=== PATIENT | female | born 1960 | race Caucasian/White ===

== ENCOUNTER 2018-01-16 09:07 | Inpatient (IN) | payer SELFPAY ==
[2018-01-16] VITALS (11 sets, daily range): BP systolic 110–156; BP diastolic 81–107; PULSE 135–161; RESP 18–28; TEMP 93.7–97.5; O2SAT 0–99
[~2018-01-16] VITALS: Ht 165.1 cm; Wt 58.0 kg
[~2018-01-16 09:07] MED LIST: CALCIUM CHLORIDE 10% SOLN 1 GRAM/10 ML SYR IV ONE; DOPamine 800 MG/500 ML INJ 500 ML IV ONE; EPINEPHrine HCL (1:10,000) 1 MG/10 ML SYRINGE IV ONE; EPINEPHrine HCL (1:1000) 30 MG/30 ML VIAL IV ONE; SODIUM BICARBONATE 8.4% INJ 50 MEQ/50 ML SYR IV ONE
[2018-01-16] MEDS ORDERED: ACETAMINOPHEN 325 MG TAB PO PRN (10:15)
[2018-01-16] MEDS ORDERED: PROPOFOL 1000 MG/100 ML INJ 100 ML IV PRN ×2 (10:15→11:00)
[2018-01-16] MEDS ORDERED: SODIUM PHOSPHATE INJ 30 MMOL in SODIUM CHLOR 0.9% 250 ML INJ 240 ML IV PRN (10:15)
[2018-01-16] MEDS ORDERED: POTASSIUM CHLOR 40 MEQ PREMIX 100 ML IV PRN ×2 (10:15)
[2018-01-16] MEDS ORDERED: POTASSIUM CHLOR 20 MEQ PREMIX 100 ML IV PRN ×2 (10:15)
[2018-01-16] MEDS ORDERED: MAGNESIUM SULFATE INJ 2 GM in SODIUM CHLORIDE 0.9% INJ 96 ML IV PRN (10:15)
[2018-01-16] MEDS ORDERED: POTASSIUM PHOSPHATE MONOBASIC 500 MG TAB PO/TUBE PRN (10:15)
[2018-01-16] MEDS ORDERED: MORPHINE SULFATE 2 MG/ML SYRINGE IV PUSH PRN (10:15)
[2018-01-16] MEDS ORDERED: MAGNESIUM OXIDE 400 MG TAB PO PRN (10:15)
[2018-01-16] MEDS ORDERED: POTASSIUM PHOSPHATE INJ 30 MMOL in SODIUM CHLOR 0.9% 250 ML INJ 250 ML IV PRN (10:15)
[2018-01-16] MEDS ORDERED: MAGNESIUM SULFATE INJ 4 GM in SODIUM CHLORIDE 0.9% INJ 92 ML IV PRN (10:15)
[2018-01-16] MEDS ORDERED: POTASSIUM PHOSPHATE MONOBASIC 500 MG TAB PO PRN (10:15)
[2018-01-16] MEDS ORDERED: SODIUM CHLORIDE 0.9% FLUSH 10 ML FLUSH IV FLUSH PRN (10:15)
[2018-01-16] MEDS ORDERED: RESP: ALBUTEROL 2.5 MG/IPRATROPIUM 0.5 MG NEB (PRN) INH (10:15)
[2018-01-16] MEDS ORDERED: NURSING INFORMATION XX SCH (10:15)
[2018-01-16] MEDS ORDERED: POTASSIUM CHLORIDE 25 MEQ EFFERVESCENT TAB PO PRN (10:15)
[2018-01-16] MEDS ORDERED: CHLORHEXIDINE GLUCONATE 2 % 1 PACK (2 CLOTHS) TOP PRN (10:15)
[2018-01-16] MEDS ORDERED: IOHEXOL 350 MG/ML 10 ML VIAL (for RAD DIAG) IVCONTRAST ONE (10:33)
--- NOTE | 2018-01-16 10:48 | RADRPT ---
EXAM DATE/TIME: 01/16/2018 10:29 [facility] COMPARISON: No previous studies available for comparison. INDICATIONS : Bleed. RADIATION DOSE: 29.23 CTDIvol (mGy) MEDICAL HISTORY : Non-responsive. SURGICAL HISTORY : Non-responsive. ENCOUNTER: Initial ACUITY: 1 day PAIN SCALE: Non-responsive LOCATION: cranial TECHNIQUE: Multiple contiguous axial images were obtained of the head. Using automated exposure control and adj ustment of the mA and/or kV according to patient size, radiation dose was kept as low as reasonably a chievable to obtain optimal diagnostic quality images. DICOM format image data is available electro nically for review and comparison. FINDINGS: The examination demonstrates high attenuation within the interhemispheric fissure consistent with sub dural hemorrhage. There is also intraventricular hemorrhage within the lateral ventricles, third vent ricle and fourth ventricle. There is also high attenuation within the basilar cisterns and along the tentorium. Small bilateral frontal subdural hematomas are also seen as well as a small amount of hemo rrhage along the temporal lobes bilaterally. There is no evidence for mass or fracture. No signs of a cute infarct. CONCLUSION: Subarachnoid, intraventricular and subdural hemorrhage is seen as above. There is no midline shift or mass effect. No masses are seen. Brady Lara MD on January 16, 2018 at 10:44 Board Certified Radiologist. This report was verified electronically.
--- NOTE | 2018-01-16 10:49 | RADRPT ---
EXAM DATE/TIME: 01/16/2018 10:11 [facility] COMPARISON: No previous studies available for comparison. INDICATIONS : Confirm Endotracheal tube. MEDICAL HISTORY : Unresponsive. SURGICAL HISTORY : Unresponsive. ENCOUNTER: Initial ACUITY: 1 day PAIN SCORE: Non-responsive. LOCATION: Bilateral chest FINDINGS: Endotracheal tube tip at the inferior margin of the clavicles. Enteric tube courses beneath the diaph ragm. Cardiomegaly and bilateral patchy areas of airspace disease are noted. No effusions. CONCLUSION: Bilateral airspace disease. Endotracheal tube and NG tube as above. Brady Lara MD on January 16, 2018 at 10:46 Board Certified Radiologist. This report was verified electronically.
--- NOTE | 2018-01-16 10:53 | RADRPT ---
EXAM DATE/TIME: 01/16/2018 10:29 [facility] COMPARISON: CT BRAIN W/O CONTRAST, January 16, 2018, 10:29. INDICATIONS : Bleed. IV CONTRAST: 75 cc Omnipaque 350 (iohexol) IV ; Cumulative dose for multiple exams. RADIATION DOSE: 26.91 CTDIvol (mGy) ; Combined studies MEDICAL HISTORY : Non-responsive. SURGICAL HISTORY : Non-responsive. ENCOUNTER: Initial ACUITY: 1 day PAIN SCALE: Non-responsive LOCATION: cranial TECHNIQUE: Volumetric scanning was performed using a multi-row detector CT scanner. The data was post processed with a variety of visualization algorithms including full volume maximum intensity projection, multi -planar sliding thin slab reformation, curved planar reformation, and surface rendering techniques. Using automated exposure control and adjustment of the mA and/or kV according to patient size, radiat ion dose was kept as low as reasonably achievable to obtain optimal diagnostic quality images. DICO M format image data is available electronically for review and comparison. FINDINGS: There is excellent visualization of the major intracranial arteries out to the second-order branch ve ssels. There is no evidence for vessel truncation or stenosis, and no evidence for vascular malforma tion. There is a large aneurysm at the midline directed posteriorly and to the left, at the level of the anterior communicating artery. It measures approximately 9.1 mm in maximal dimension. There are bilateral pleural effusions, lower lobe and upper lobe consolidation as well as emphysemato us changes. Endotracheal tube and enteric tubes are noted. 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 Brady Lara MD on January 16, 2018 at 10:47 Board Certified Radiologist. This report was verified electronically.
--- NOTE | 2018-01-16 10:58 | RADRPT ---
EXAM DATE/TIME: 01/16/2018 10:29 [facility] COMPARISON: CTA BRAIN W 3D RECON, January 16, 2018, 10:29. CT BRAIN W/O CONTRAST, January 16, 2018, 10:29. INDICATIONS : Bleed. IV CONTRAST: 75 cc Omnipaque 350 (iohexol) IV ; Cumulative dose for multiple exams. RADIATION DOSE: 26.91 CTDIvol (mGy) ; Combined studies - Brain/Sinuses MEDICAL HISTORY : Non-responsive. SURGICAL HISTORY : Non-responsive. ENCOUNTER: Initial ACUITY: 1 day PAIN SCALE: Non-responsive LOCATION: neck Elevated flow velocities and ICA/CCA ratios have been found to correlate with increased degrees of vessel stenosis, calculated as percentage of diameter relative to a normal segment of distal ICA/CCA. TECHNIQUE: Volumetric scanning was performed using a multirow detector CT scanner. The data was post processed with a variety of visualization algorithms including full-volume maximum intensity projection, multip lanar sliding thin-slab reformation, curved-planar reformation, and surface-rendering techniques. Us ing automated exposure control and adjustment of the mA and/or kV according to patient size, radiatio n dose was kept as low as reasonably achievable to obtain optimal diagnostic quality images. DICOM f ormat image data is available electronically for review and comparison. FINDINGS: There is consolidation within the upper and lower lobes, bilateral effusions and emphysema. Anterior to indicating artery aneurysm is noted and best assessed on CTA brain from the same day. AORTIC ARCH: There is a three-vessel origin of the great vessels from the aorta. No evidence of ostial narrowing. RIGHT CAROTID: The common carotid artery is intact. The carotid bulb has a normal configuration without ulceration o r narrowing. The internal carotid artery lumen is smooth without stenosis. The external carotid stephanie ry is intact. LEFT CAROTID: The common carotid artery is intact. The carotid bulb has a normal configuration without ulceration or narrowing. The internal carotid artery lumen is smooth without stenosis. The external carotid ar demarco is intact. VERTEBRALS: The vertebral arteries have a symmetric diameter. No stenotic lesions are seen. CONCLUSION: 1. Right and left carotid arteries are widely patent as well as the vertebral arteries. 2. Airspace consolidation and effusions bilaterally. 3. Anterior communicating artery aneurysm. Brady Lara MD on January 16, 2018 at 10:53 Board Certified Radiologist. This report was verified electronically.
[2018-01-16] MEDS: SODIUM CHLOR 0.9% 1000 ML INJ 1,000 ML IV SCH ×3 (10:59→23:25)
--- NOTE | 2018-01-16 11:37 | HHI.HP ---
[facility] Service Critical Care Medicine Primary Care Physician Unknown Admission Diagnosis Diagnosis: (1) Aneurysmal subarachnoid hemorrhage Diagnosis: Principal (2) Interhemispheric and bifrontal SDH Diagnosis: Principal (3) IVH (intraventricular hemorrhage) Diagnosis: Principal (4) Acute hypoxemic respiratory failure Diagnosis: Principal (5) Acute encephalopathy Diagnosis: Principal Chief Complaint: Fall with subdural and subarachnoid hemorrhage Travel History International Travel<30 Days: No Contact w/Intl Traveler <30 Da: No Traveled to Known Affected Are: No History of Present Illness Patient is a 57-year-old female with past medical history significant for alcohol abuse who was found unresponsive in her bathroom by her brother. Patient lives with her brother and family, and apparently they heard a fall and checked on her and she was lying on the ground, confused lethargic. Patient initially opened her eyes but then again level of consciousness started to deteriorate. Emergently taken to [facility] by EMS. Intubated for airway protection. CT of the head at [facility] showed subdural hemorrhage along tentorium and falx and subarachnoid hemorrhage. Patient has reported a history of headache yesterday night. Patient was emergently transferred to [facility] for further workup. Patient was immediately evaluated after arrival to the [place] ICU. She withdraws to pain otherwise no spontaneous eye opening or movements. Remain hypoxemic with bilateral infiltrates on chest x-ray. Patient was emergently sent for a CT of the head and CT angiogram of brain and neck. CT brain here confirmed interhemispheric and bifrontal subdural hemorrhage, intraventricular hemorrhage involving third fourth and lateral ventricles, and subarachnoid hemorrhage. 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 Discussed with neurosurgery Dr. Mckinley, and I contacted interventional radiologist Dr. Erwin Lisa. He is unable to coil this aneurysm and he recommends transfer to [facility]. At this time we will target a systolic blood pressure less than 120 as aneurysm is not secure. Stat order for starting Nimotop given. Arrangements are being made to transfer her to [facility]. Keep Na 145-150. EVD planned if clinical deterioration or delay in transfer. Review of Systems ROS Limitations: Altered Mental Status, Unresponsive Past Family Social History Allergies: Coded Allergies: No Allergy Information Available (Unverified , 01/16/18) Intubated Past Medical History Alcohol abuse Tobacco abuse Past Surgical History Brother states patient had rectal surgery long time ago-do not know any specifics Reported Medications Does not take any medications Active Ordered Medications Reviewed currently on propofol and normal saline Family History Maternal uncle might have of aneurysmal bleed Social History Smokes about a pack of cigarettes a day Drinks more than a pint of vodka daily Physical Exam Vital Signs Vital Signs Date Time Temp Pulse Resp B/P (MAP) Pulse Ox O2 Delivery O2 Flow Rate FiO2 01/16/18 10:04 92 100 Physical Exam GENERAL: Unresponsive, intubated on ventilator. Sedated with propofol SKIN: Warm/dry. HEAD: Atraumatic. Normocephalic. EYES: Pupils equal and round, right eye has cataract, left eye sluggish ENT: No nasal bleeding or discharge. Orotracheally intubated NECK: Trachea midline. No JVD. CARDIOVASCULAR: Regular rate and rhythm. No murmur appreciated. RESPIRATORY: Bilateral coarse rhonchi and few crackles. Breath sounds equal bilaterally. On ACV with PEEP of 12 GASTROINTESTINAL: Abdomen soft, non-tender, nondistended. MUSCULOSKELETAL: No obvious deformities. No clubbing. No cyanosis. No edema. NEUROLOGICAL: Pupils as above. Remains unresponsive. Withdraws to pain 4. No spontaneous eye opening Laboratory Laboratory Tests Test 01/16/18 10:25 01/16/18 11:00 Date/Time Source Procedure Growth Status 01/16/18 10:47 Sputum Endotracheal Gram Stain Pending Received 01/16/18 10:47 Sputum Endotracheal Sputum Culture Pending Received Imaging See HPI Septic Shock Reassessment Septic shock perfusion: reassessment completed Caprini VTE Risk Assessment Caprini VTE Risk Assessment: Mod/High Risk (score >= 2) VTE Pharm Contraindication: Hemorrhage Caprini Risk Assessment Model Point Value = 1 Point Value = 2 Point Value = 3 Point Value = 5 Age 41-60 Minor surgery BMI > 25 kg/m2 Swollen legs Varicose veins or History of unexplained or recurrent spontaneous Oral contraceptives or hormone replacement Sepsis (< 1 month) Serious lung disease, including pneumonia (< 1 month) Abnormal pulmonary function Acute myocardial infarction Congestive heart failure (< 1 month) History of inflammatory bowel disease Medical patient at bed rest Age 61-74 Arthroscopic surgery Major open surgery (> 45 min) Laparoscopic surgery (> 45 min) Malignancy Confined to bed (> 72 hours) Immobilizing plaster cast Central venous access Age >= 75 History of VTE Family history of VTE Factor V Leiden Prothrombin [id number] Lupus anticoagulant Anticardiolipin antibodies Elevated serum homocysteine Heparin-induced thrombocytopenia Other congenital or acquired thrombophilia Stroke (< 1 month) Elective arthroplasty Hip, pelvis, or leg fracture Acute spinal cord injury (< 1 month) Prophylaxis Regimen Total Risk Factor Score Risk Level Prophylaxis Regimen 0-1 Low Early ambulation 2 Moderate Order ONE of the following: *Sequential Compression Device (SCD) *Heparin 5000 units SQ BID 3-4 Higher Order ONE of the following medications: *Heparin 5000 units SQ TID *Enoxaparin/Lovenox 40 mg SQ daily (WT < 150 kg, CrCl > 30 mL/min) *Enoxaparin/Lovenox 30 mg SQ daily (WT < 150 kg, CrCl > 10-29 mL/min) *Enoxaparin/Lovenox 30 mg SQ BID (WT < 150 kg, CrCl > 30 mL/min) AND/OR *Sequential Compression Device (SCD) 5 or more Highest Order ONE of the following medications: *Heparin 5000 units SQ TID (Preferred with Epidurals) *Enoxaparin/Lovenox 40 mg SQ daily (WT < 150 kg, CrCl > 30 mL/min) *Enoxaparin/Lovenox 30 mg SQ daily (WT < 150 kg, CrCl > 10-29 mL/min) *Enoxaparin/Lovenox 30 mg SQ BID (WT < 150 kg, CrCl > 30 mL/min) AND *Sequential Compression Device (SCD) Assessment and Plan Assessment and Plan Assessment and Plan NEURO: Acute aneurysmal subarachnoid hemorrhage, 9.1 mm a calm aneurysm Interhemispheric and bifrontal subdural hemorrhage most likely secondary to trauma from fall Intraventricular hemorrhage involving third fourth and lateral ventricles Alcohol abuse Acute encephalopathy -CT brain showed interhemispheric and bifrontal subdural hemorrhage, intraventricular hemorrhage involving third fourth and lateral ventricles, and subarachnoid hemorrhage, neurosurgery Dr. 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 Discussed with Dr. Lisa who recommended transfer to [facility] -Start 3% saline to target sodium 150-155. Dr. Mckinley will consider EVD especially if there is delay in transfer -Supplement thiamine, watch for seizure. No seizure prophylaxis recommended at this time -Propofol, fentanyl for sedation and vent synchrony -Avoid hyponatremia hypomagnesemia, avoid hypothermia -Tylenol as needed for fever RESP: Acute hypoxemic respiratory failure Aspiration pneumonitis versus pulmonary edema -ACV, DuoNeb every 6 hours scheduled and as needed -Sputum culture, start empiric Zosyn for aspiration pneumonia -No ventilator weaning until stable neurologically -Ventilator bundle, keep head of the bed elevated at least 30 CV: -Normal saline IV fluids at 150 ml per hour -Start 3% saline at 30 mL/h to keep Na 145-150, if needed -Cardene infusion if needed to keep systolic blood pressure less than 120 GI: -N.p.o., IV Famotidine : -Monitor renal function closely. Hernandez catheter. ID: Aspiration pneumonitis Probable sepsis -F/u sputum urine culture -Start Zosyn 3.375 GM q6hr HEME: -Monitor CBC, CMP ENDO: -Replace electrolytes per protocol PROPH: -Bilateral lower extremity SCDs/BRIAN. Chemical DVT prophylaxis is contraindicated at this time. IV Protonix LINES: -Place subclavian central line CC time 65 min excluding procedure Code Status Full Discussed Condition With Nikko Roman MD Jan 16, 2018 11:37
[2018-01-16] MEDS ORDERED: TERBUTALINE INJ 1 MG/ML AMP SQ PRN (11:45)
[2018-01-16] MEDS: niMODipine 30 MG CAP PO SCH ×3 (12:00→20:00)
[2018-01-16] MEDS: RESP: ALBUTEROL 2.5 MG/IPRATROPIUM 0.5 MG NEB (SCH) NEB ×3 (12:05→22:00)
--- NOTE | 2018-01-16 12:26 | MB ---
cc: Enrique MOLINA DATE: 01/16/2018 CHIEF COMPLAINT: Transfer from [facility]. HISTORY OF PRESENT ILLNESS: This is a 57-year-old female patient who apparently reported she had a headache last night. This morning, the family heard her fall and found her to be unresponsive. She was brought to [facility] where she underwent evaluation. CT scan of the brain was performed, which was abnormal, and she was transported to [place] for further care. PAST MEDICAL HISTORY: Not obtainable. Unknown. ALLERGIES: UNKNOWN. MEDICATIONS: Unknown. REVIEW OF SYSTEMS: Not obtainable. PHYSICAL EXAMINATION: VITAL SIGNS: Shows a blood pressure of 130/80, pulse of 130. The patient is intubated and sedated. Pulse oximetry of 92. HEENT: Unremarkable. NECK: Supple with good carotid pulses bilaterally. CHEST: Symmetric. Lungs are clear. HEART: Shows a regular rhythm with normal heart sounds. ABDOMEN: Soft, nontender. EXTREMITIES: Appear to be clear. NEUROLOGIC: The patient is sedated and nonresponsive. She does not follow commands. Cranial nerves 2-12 appear to be intact. Motor exam shows that she tends to withdraw the upper and lower extremities. Deep tendon reflexes are trace. LABORATORY AND DIAGNOSTIC DATA:: Review of a CT scan of the brain shows what appears to be a tentorial hemorrhage and possibly blood in the cistern and some blood in the ventricular system. Repeat CT at [place] shows evidence of ventricular blood and blood in the third and fourth ventricle with mild ventriculomegaly, blood along the tentorium, small subdural in the frontal and temporal areas. CTA of the brain shows what appears to be anterior communicating aneurysm of about 9 mm. OVERALL IMPRESSION: 1. Intraventricular and tentorial hemorrhage as well as falcine hemorrhage. Subdural hemorrhage,small 2. Anterior communicating artery aneurysm. PLAN: Transfer the patient to a higher center after discussion with the business control manager for possible intervention or clipping of the aneurysm. Depending on the rapidity of transfer, EVD may be noted prior to transfer. Enrique TINOCO/GARRY , 11:55 AM , 12:25 PM [facility]ERTam[facility]
[2018-01-16] MEDS ORDERED: 3% SALINE INJ 500 ML IV SCH (12:30)
[2018-01-16] MEDS ORDERED: PHENYLEPHRINE INJ 40 MG in DEXTROSE 5% IN WATE 500 ML INJ 496 ML IV PRN ×2 (13:00)
--- NOTE | 2018-01-16 13:15 | HHI.DS ---
Discharge Summary Admission Date Jan 16, 2018 at 09:54 Admitting Diagnosis (1) Aneurysmal subarachnoid hemorrhage ICD Code: I60.8 - Other nontraumatic subarachnoid hemorrhage Diagnosis: Principal (2) Interhemispheric and bifrontal SDH Diagnosis: Principal (3) IVH (intraventricular hemorrhage) ICD Code: I61.5 - Nontraumatic intracerebral hemorrhage, intraventricular Diagnosis: Principal (4) Acute hypoxemic respiratory failure ICD Code: J96.01 - Acute respiratory failure with hypoxia Diagnosis: Principal (5) Acute encephalopathy ICD Code: G93.40 - Encephalopathy, unspecified Diagnosis: Principal Procedures Intubated at [facility] Brief History Patient is a 57-year-old female with past medical history significant for alcohol abuse who was found unresponsive in her bathroom by her brother. Patient lives with her brother and family, and apparently they heard a fall and checked on her and she was lying on the ground, confused lethargic. Patient initially opened her eyes but then again level of consciousness started to deteriorate. Emergently taken to [facility] by EMS. Intubated for airway protection. CT of the head at [facility] showed subdural hemorrhage along tentorium and falx and subarachnoid hemorrhage. Patient has reported a history of headache yesterday night. Patient was emergently transferred to [facility] for further workup. Patient was immediately evaluated after arrival to the [place] ICU. She withdraws to pain otherwise no spontaneous eye opening or movements. Remain hypoxemic with bilateral infiltrates on chest x-ray. Patient was emergently sent for a CT of the head and CT angiogram of brain and neck. CT brain here confirmed interhemispheric and bifrontal subdural hemorrhage, intraventricular hemorrhage involving third fourth and lateral ventricles, and subarachnoid hemorrhage. 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 Discussed with neurosurgery Dr. Mckinley, and I contacted interventional radiologist Dr. Erwin Lisa. He is unable to coil this aneurysm and he recommends transfer to [facility]. At this time we will target a systolic blood pressure less than 120 as aneurysm is not secure. Stat order for starting Nimotop given. Arrangements are being made to transfer her to [facility]. Keep Na 145-150. EVD planned if clinical deterioration or delay in transfer. Significant Findings Laboratory Tests Test 01/16/18 10:00 01/16/18 10:25 01/16/18 11:00 01/16/18 12:15 Blood Gas HCO3 16 mmol/L (22-26) 15 mmol/L (22-26) Blood Gas Base Excess -9.4 mmol/L (-2-2) -9.5 mmol/L (-2-2) Blood Gas Oxygen Saturation 85 % (90-100) Arterial Blood pH 7.26 (7.380-7.420) 7.36 (7.380-7.420) Arterial Blood Oxygen Content 23.8 Vol % (12.0-20.0) 29.7 Vol % (12.0-20.0) Blood Gas Hemoglobin 20.0 G/DL (12.0-16.0) 21.6 G/DL (12.0-16.0) Arterial Blood Partial Pressure CO2 28 mmHg (38-42) Arterial Blood Partial Pressure O2 179 mmHg (61-120) Imaging CT brain here confirmed interhemispheric and bifrontal subdural hemorrhage, intraventricular hemorrhage involving third fourth and lateral ventricles, and subarachnoid hemorrhage. 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 PE at Discharge GENERAL: Unresponsive, intubated on ventilator. Sedated with propofol SKIN: Warm/dry. HEAD: Atraumatic. Normocephalic. EYES: Pupils equal and round, right eye has cataract, left eye sluggish ENT: No nasal bleeding or discharge. Orotracheally intubated NECK: Trachea midline. No JVD. CARDIOVASCULAR: Regular rate and rhythm. No murmur appreciated. RESPIRATORY: Bilateral coarse rhonchi and few crackles. Breath sounds equal bilaterally. On ACV with PEEP of 12 GASTROINTESTINAL: Abdomen soft, non-tender, nondistended. MUSCULOSKELETAL: No obvious deformities. No clubbing. No cyanosis. No edema. NEUROLOGICAL: Pupils as above. Remains unresponsive. Withdraws to pain 4. No spontaneous eye opening Transfer Summary 57-year-old female with past medical history significant for alcohol abuse who was found unresponsive at home and was transferred to [facility] by EMS. Intubated for airway protection. CT of the head at [facility] showed subdural hemorrhage along tentorium and falx and subarachnoid hemorrhage. Patient has reported a history of headache yesterday night. Patient was emergently transferred to [facility] for further workup. After arrival here, emergently sent for a CT of the head and CT angiogram of brain and neck. CT brain here confirmed interhemispheric and bifrontal subdural hemorrhage, intraventricular hemorrhage involving third fourth and lateral ventricles, and subarachnoid hemorrhage. 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 Discussed with neurosurgery Dr. Mckinley, and interventional radiologist Dr. Erwin Lisa. Unable to coil this aneurysm here recommended transfer to [facility]. Will target a systolic blood pressure less than 120 as aneurysm is not secure. Nimotop 60 mg po q4h. Transfer to [facility] emergently to Dr. Madden, Neurosurgery Pt Condition on Discharge: Guarded Discharge Disposition: Disch to Another Hospital Discharge Instructions DIET: Follow Instructions for: Nothing By Mouth Activities you can perform: Continue Bedrest Nikko Lafleur MD Jan 16, 2018 13:15
[2018-01-16] MEDS: THIAMINE INJ 100 MG in SODIUM CHLORIDE 0.9% INJ 100 ML IV SCH (13:25)
[2018-01-16 13:56] LABS: BACTERIA, URINE FEW /hpf; BILIRUBIN, URINE NEG (NEG); BLOOD, URINE MOD (NEG); GLUCOSE,URINE NEG (NEG); KETONE, URINE NEG (NEG); MUCUS URINE FEW /lpf (OCC); NITRITE,URINE POS (NEG); SQUAMOUS EPITHELIAL CELL URINE <1 /hpf (0-5); URINE COLOR YELLOW (YELLW/STRAW)
[2018-01-16 13:57] LABS: URINE LEUKOCYTE ESTERASE SMALL (NEG)
[2018-01-16] MEDS: PIPERACIL-TAZO 3.375 GM PREMIX 50 ML IV SCH ×2 (14:00→20:00)
[2018-01-16 14:09] LABS: AUTOMATED NEUTROPHIL # 15.4 TH/MM3 (1.8-7.7); BASOPHIL # 0.2 TH/MM3 (0-0.2); BASOPHIL % 1.1 % (0.0-2.0); EOSINOPHIL % 0.2 % (0.0-4.0); HEMATOCRIT 61.4 % (35.0-46.0); HEMOGLOBIN 21.5 GM/DL (11.6-15.3); LYMPHOCYTE # 2.3 TH/MM3 (1.0-4.8); MEAN CELL VOLUME 104.1 FL (80.0-100.0); MEAN CORPUSCULAR HEMOGLOBIN 36.4 PG (27.0-34.0); MEAN CORPUSCULAR HGB CONC 34.9 % (32.0-36.0); MONO % 6.8 % (0.0-8.0); MONOCYTE # 1.3 TH/MM3 (0-0.9); NEUT % 79.9 % (16.0-70.0); PLATELET COUNT 278 TH/MM3 (150-450); RED CELL DISTRIBUTION WIDTH 16.8 % (11.6-17.2); WHITE BLOOD COUNT 19.2 TH/MM3 (4.0-11.0)
--- NOTE | 2018-01-16 14:18 | RADRPT ---
EXAM DATE/TIME: 01/16/2018 13:57 [facility] COMPARISON: CHEST SINGLE AP, January 16, 2018, 10:11. INDICATIONS : Central line placement. MEDICAL HISTORY : Unresponsive. SURGICAL HISTORY : Unresponsive. ENCOUNTER: Subsequent ACUITY: 2 days PAIN SCORE: Non-responsive. LOCATION: Bilateral chest FINDINGS: There is a left pneumothorax measuring up to 3.3 cm. Midline shift is not seen. There is a left inter nal jugular central line in place with the tip overlying the SVC. The ET tube and NG tube are well pl aced. Heart size is normal. There is diffuse increased mixed interstitial and alveolar density likely related to edema. CONCLUSION: New at least moderate left pneumothorax. Dr. Lafleur was notified of this by telephone. Miquel Jules MD on January 16, 2018 at 14:13 Board Certified Radiologist. This report was verified electronically.
--- NOTE | 2018-01-16 14:52 | PD.PROCEDR ---
Central Line Procedure REASON FOR PROCEDURE Central venous access PROCEDURE PERFORMED Central line placement: Left IJ central line US guided CONSENT Informed consent for procedure was obtained from brother. The risks and benefits of the procedure were discussed to include but limited to bleeding, clot formation, infection, and even . ANESTHESIA Local injection of 1% Lidocaine DESCRIPTION OF THE PROCEDURE The patient was placed in supine, mild Trendelenburg position. The area was exposed and cleansed with ChloraPrep, times two. Large sterile drape was used to cover the patient, with the site exposed, under sterile conditions including cap, face mask, sterile gown, and sterile gloves. On single attempt, the introducer needle was inserted with negative pressure in syringe and venous flash was obtained. The guide wire was then advanced without any restriction and the needle was removed. The dilator was used without any complications. Using Seldinger technique the 20 cm 7F triple lumen catheter was advanced over the guide wire to a depth of 18 centimeters. The guide wire was removed. All ports were aspirated with dark venous blood return and flushed easily with sterile saline. All ports were capped. Antibiotic disc was placed around central line at puncture site. The central line was secured to the skin with two interrupted 2.0 silk sutures. The area was bandaged with sterile see- through central line bandage. RADIOLOGICAL DATA Ultrasound guidance was used to locate LIJ. Doppler/color flow was used to confirm venous flow. COMPLICATIONS: No apparent complications ESTIMATED BLOOD LOSS: Less than 1 cc. Addendum: Attempted left subclavian central line, air was withdrawn. So LIJ central line placed. CXR showed L apical pneumothorax and a left pigtail chest tube was placed Nikko Lafleur MD Jan 16, 2018 14:52
--- NOTE | 2018-01-16 14:56 | PD.PROCEDR ---
Procedure Note Procedure Procedure: Left pigtail chest tube placement Indication: Moderate left effusion pneumothorax Details of procedure: The patient was laid in supine position. The left anterior chest wall was cleaned with ChloraPrep twice. Regional sterile drapes were applied and I used full sterile precautions including Cap mask sterile gown and gloves. 1% lidocaine with epinephrine was used for local anesthesia and injected into the subcutaneous and deep muscle tissues, at the third intercostal space in the midclavicular line. A 0.25 cm skin incision was made with a scalpel. 18G access needle was introduced into the pleural space and air was aspirated. A guidewire was placed and the needle was removed. After serial dilation, a 10F Icelandic pigtail catheter was introduced using Seldinger technique over the guidewire and internal stiffener of the pigtail catheter was removed along with guidewire. The pigtail catheter was connected to the pleurovac at -40 suction. There was 2+ initial air leak. The pigtail catheter was secured with 1 silk suture and Stay fix dressing Estimated blood loss: <1 cc CXR pending Complications: None. Nikko Lafleur MD Jan 16, 2018 14:56
--- NOTE | 2018-01-16 15:34 | RADRPT ---
EXAM DATE/TIME: 01/16/2018 14:44 [facility] COMPARISON: CHEST SINGLE AP, January 16, 2018, 13:57. INDICATIONS : Evaluate chest tube placement MEDICAL HISTORY : SURGICAL HISTORY : None. ENCOUNTER: Subsequent ACUITY: 1 day PAIN SCORE: Non-responsive. LOCATION: chest FINDINGS: There is now a left-sided chest tube in place. There is improvement in the left pneumothorax. There i s a residual small pneumothorax measuring up to 8 mm over the apex. This is significantly improved fr om the previously seen moderate to large pneumothorax. ET tube and NG tube and left internal jugular central line are well placed. Heart size is normal. The lung shows diffuse mixed interstitial and rossy eolar density likely related to edema. CONCLUSION: 1. Successful placement of a left-sided chest tube with a small residual pneumothorax measuring up to 8 mm. 2. Suspected diffuse edema. Miquel Jules MD on January 16, 2018 at 15:29 Board Certified Radiologist. This report was verified electronically.
[2018-01-16 15:41] LABS: PHOSPHORUS 1.9 MG/DL (2.5-4.9); TOTAL BILIRUBIN ADULT 0.4 MG/DL (0.2-1.0); TOTAL PROTEIN 3.7 GM/DL (6.4-8.2)
[2018-01-16 15:45] LABS: ALBUMIN 1.7 GM/DL (3.4-5.0); BICARBONATE 15.2 MEQ/L (21.0-32.0); CREATININE 0.36 MG/DL (0.50-1.00); MAGNESIUM 1.1 MG/DL (1.5-2.5)
[2018-01-16 15:47] LABS: CALCIUM 5.7 MG/DL (8.5-10.1)
[2018-01-16] MEDS ORDERED: SODIUM BICARBONATE 8.4% INJ 50 MEQ/50 ML SYR ONE ×3 (15:56→17:21)
[2018-01-16 15:58] LABS: CALCIUM-PROTEIN CORRECTED 7.3 MG/DL (8.5-10.1)
[2018-01-16] MEDS ORDERED: CALCIUM CHLORIDE 10% SOLN 1 GRAM/10 ML SYR ONE ×2 (16:01→17:46)
[2018-01-16] MEDS ORDERED: ROCURONIUM INJ 50 MG/5 ML VIAL ONE ×2 (16:02→16:03)
[2018-01-16] MEDS ORDERED: MIDAZOLAM HCL 5 MG/ML VIAL (1 ML) ONE (16:10)
--- NOTE | 2018-01-16 16:14 | PD.PROCEDR ---
Procedure Note Procedure Procedure- right femoral arterial line placement indication- invasive hemodynamic monitoring Description of procedure: The patient was placed in supine, position. The area was exposed and cleansed with ChloraPrep, times two. Large sterile drape was used to cover the patient, with the site exposed, under sterile conditions including cap, face mask, sterile gown, and sterile gloves. On single attempt, the introducer needle was inserted with negative pressure in syringe and arterial flash was obtained. The guide wire was then advanced without any restriction and the needle was removed. Using Seldinger technique the 16 cm arterial catheter was advanced over the guide wire. The guide wire was removed. Good arterial waveform obtained. Antibiotic disc was placed around arterial line at puncture site. The arterial line was secured to the skin with one interrupted silk sutures. The area was bandaged with sterile see-through central line bandage. Nikko Lafleur MD Jan 16, 2018 16:14
--- NOTE | 2018-01-16 17:23 | RADRPT ---
EXAM DATE/TIME: 01/16/2018 16:34 [facility] COMPARISON: CHEST SINGLE AP, January 16, 2018, 14:44. INDICATIONS : Left chest tube removal. MEDICAL HISTORY : None. SURGICAL HISTORY : None. ENCOUNTER: Subsequent ACUITY: 1 day PAIN SCORE: Non-responsive. LOCATION: Bilateral chest FINDINGS: The previously seen left chest tube is no longer present. There continues to be a left pneumothorax. It appears larger on the current exam now measuring 1.4 cm. There is diffuse edema. ETT, NG tube and left internal jugular central line are well placed. The heart size is normal. CONCLUSION: A left chest tube has been removed and there is now a worsening mild left pneumothorax. Information was relayed to Dr. Lafleur by telephone. Miquel Jules MD on January 16, 2018 at 17:19 Board Certified Radiologist. This report was verified electronically.
[2018-01-16] MEDS ORDERED: EPINEPHrine HCL (1:10,000) 1 MG/10 ML SYRINGE ONE (17:24)
--- NOTE | 2018-01-16 17:25 | RADRPT ---
EXAM DATE/TIME: 01/16/2018 16:48 [facility] COMPARISON: CHEST SINGLE AP, January 16, 2018, 16:34. INDICATIONS : Left sided chest tube placement. MEDICAL HISTORY : None. SURGICAL HISTORY : None. ENCOUNTER: Subsequent ACUITY: 1 day PAIN SCORE: Non-responsive. LOCATION: Bilateral chest FINDINGS: There is a chest tube seen over the left side. The tip of this appears to be projecting over the left supraclavicular region and is not within the pleural space. There continues to be a pneumothorax on the left. Pneumothorax measures 1.5 cm in thickness over the left upper lung. The heart size is norm al. The lungs are to diffuse edema. ET tube, NG tube and left internal jugular line are well placed. CONCLUSION: The left chest tube does not appear to be within the left pleural space and there continues to be a p neumothorax on the left. This information was relayed to Dr. Lafleur by telephone. Miquel Jules MD on January 16, 2018 at 17:20 Board Certified Radiologist. This report was verified electronically.
--- NOTE | 2018-01-16 17:30 | RADRPT ---
EXAM DATE/TIME: 01/16/2018 17:12 [facility] COMPARISON: CHEST SINGLE AP, January 16, 2018, 16:48. INDICATIONS : Evaluate chest tube placement MEDICAL HISTORY : None. SURGICAL HISTORY : None. ENCOUNTER: Subsequent ACUITY: 1 day PAIN SCORE: Non-responsive. LOCATION: chest FINDINGS: Stable ETT, NGT and left IJ central line. Interval repositioning/replacement of left apical chest tub e in place with near interval resolution of left-sided pneumothorax. No new focal pleural or parenchy mal opacities. Cardiomediastinal contours are stable. Remainder of exam is unchanged. CONCLUSION: 1. Repositioning/replacement of left apical chest tube with near interval resolution of left-sided pn eumothorax. 2. Remainder of the exam is unchanged. Gerald Dye MD on January 16, 2018 at 17:26 Board Certified Radiologist. This report was verified electronically.
[2018-01-16] MEDS ORDERED: VASOPRESSIN 20 UNITS/ML VIAL ONE (17:35)
[2018-01-16] MEDS ORDERED: NOREPINEPHRINE 4 MG/4 ML AMP ONE ×2 (17:49→19:02)
--- NOTE | 2018-01-16 18:31 | PD.PROCEDR ---
Procedure Note Procedure Procedure: Left pigtail chest tube placement, re do Indication: Moderate left pneumothorax, accidental dislodgment of the original chest tube by EMS Details of procedure: When EMS was transferring the patient to the stretcher for transport to [place], the pigtail chest tube accidentally dislodged. Chest x-ray confirmed expansion of pneumothorax. The patient was laid in supine position. The left anterior chest wall was cleaned with ChloraPrep twice. Existing sutures were removed. Regional sterile drapes were applied and I used full sterile precautions including Cap mask sterile gown and gloves. 1% lidocaine with epinephrine was used for local anesthesia and injected into the subcutaneous and deep muscle tissues, at the third intercostal space in the midclavicular line. A 0.25 cm skin incision was made with a scalpel. 18G access needle was introduced into the pleural space and air was aspirated. A guidewire was placed and the needle was removed. After serial dilation, a 10F [place] pigtail catheter was introduced using Seldinger technique over the guidewire and internal stiffener of the pigtail catheter was removed along with guidewire. The pigtail catheter was connected to the pleurovac at -40 suction. There was 1+ initial air leak. The pigtail catheter was secured with 1 silk suture and Stay fix dressing Estimated blood loss: <1 cc Second chest tube was malpositioned and was removed and a third chest tube was placed with complete re expansion of pneumothorax Nikko Lafleur MD Jan 16, 2018 18:31
[2018-01-16] MEDS ORDERED: CALCIUM CHLORIDE 10% SOLN 1 GRAM/10 ML SYR IV ONE (19:00)
[2018-01-16] MEDS ORDERED: MIDAZOLAM HCL 2 MG/2 ML VIAL IV ONE (19:00)
[2018-01-16] MEDS ORDERED: CALCIUM CHLORIDE 10% SOLN 1 GRAM/10 ML SYR IV SCH (19:00)
[2018-01-16] MEDS ORDERED: SODIUM BICARBONATE 8.4% SOLN 50 MEQ/50 ML VIAL IV ONE (19:00)
[2018-01-16] MEDS ORDERED: SODIUM BICARBONATE 8.4% SOLN 50 MEQ/50 ML VIAL IV SCH ×2 (19:00→22:30)
[2018-01-16] MEDS ORDERED: ROCURONIUM INJ 100 MG/10 ML VIAL IV ONE (19:00)
[2018-01-16] MEDS ORDERED: PHENYLEPHRINE HCL 10 MG/ML VIAL ONE (19:02)
[2018-01-16] MEDS ORDERED: NOREPINEPHRINE 16 MG/D5W 250 ML IV PRN ×2 (19:15)
[2018-01-16] MEDS ORDERED: PHENYLEPHRINE HCL 160 MG/D5W 484 ML ADMIX IV PRN ×2 (19:15)
[2018-01-16] MEDS ORDERED: EPINEPHrine (1:1000) INJ 2 MG in SODIUM CHLOR 0.9% 250 ML INJ 248 ML IV PRN (19:45)
[2018-01-16] MEDS ORDERED: PHENYLEPHRINE INJ 160 MG in SODIUM CHLORID 0.9% 500 ML INJ 484 ML IV PRN ×2 (19:45→22:30)
[2018-01-16] MEDS ORDERED: NOREPINEPHRINE INJ 16 MG in SODIUM CHLOR 0.9% 250 ML INJ 234 ML IV PRN ×2 (19:45→22:30)
[2018-01-16] MEDS: CHLORHEXIDINE 0.12% (ORAL KIT) 15 ML CUP MT SCH (20:00)
[2018-01-16] MEDS ORDERED: EPINEPHrine (1:1000) INJ 8 MG in SODIUM CHLOR 0.9% 250 ML INJ 242 ML IV PRN ×2 (20:30→22:30)
[2018-01-16] MEDS ORDERED: EPINEPHrine 8 MG/D5W 250 ML IV PRN ×2 (20:30)
[2018-01-16 20:53] LABS: HEMATOCRIT 60.2 % (35.0-46.0); HEMOGLOBIN 19.9 GM/DL (11.6-15.3); MEAN CELL VOLUME 104.7 FL (80.0-100.0); MEAN CORPUSCULAR HEMOGLOBIN 34.5 PG (27.0-34.0); PLATELET COUNT 122 TH/MM3 (150-450); RED BLOOD COUNT 5.75 MIL/MM3 (4.00-5.30); RED CELL DISTRIBUTION WIDTH 16.6 % (11.6-17.2); WHITE BLOOD COUNT 17.1 TH/MM3 (4.0-11.0)
[2018-01-16] MEDS: SODIUM CHLORIDE 0.9% FLUSH 10 ML FLUSH IV FLUSH SCH (21:00)
[2018-01-16 21:04] LABS: INTERNATIONAL NORMALIZED RATIO 1.5 RATIO; PROTHROMBIN TIME - PATIENT 15.5 SEC (9.8-11.6)
[2018-01-16 21:19] LABS: ALBUMIN 1.9 GM/DL (3.4-5.0); ALKALINE PHOSPHATASE 107 U/L (45-117); ALT (GPT) 88 U/L (10-53); AST (GOT) 255 U/L (15-37); BICARBONATE 14.1 MEQ/L (21.0-32.0); BLOOD UREA NITROGEN 14 MG/DL (7-18); CALCIUM 11.4 MG/DL (8.5-10.1); CHLORIDE 122 MEQ/L (98-107); CREATININE 1.13 MG/DL (0.50-1.00); GLOMERULAR FILTRATION RATE 50 ML/MIN (>89); GLUCOSE,RANDOM 196 MG/DL (74-106); MAGNESIUM 1.6 MG/DL (1.5-2.5); PHOSPHORUS 6.2 MG/DL (2.5-4.9); SODIUM (NA) 149 MEQ/L (136-145); TOTAL BILIRUBIN ADULT 1.5 MG/DL (0.2-1.0); TOTAL PROTEIN 4.2 GM/DL (6.4-8.2)
[2018-01-17] VITALS (7 sets, daily range): BP systolic 58–85; BP diastolic 36–63; PULSE 113–152; RESP 24; TEMP 95.9–97.7; O2SAT 0–93
[2018-01-17] MEDS: PIPERACIL-TAZO 3.375 GM PREMIX 50 ML IV SCH ×2 (02:00→08:00)
[2018-01-17] MEDS: niMODipine 30 MG CAP PO SCH ×3 (04:00→08:00)
[2018-01-17] MEDS: RESP: ALBUTEROL 2.5 MG/IPRATROPIUM 0.5 MG NEB (SCH) NEB ×2 (04:00→11:12)
[2018-01-17] MEDS ORDERED: CHLORHEXIDINE GLUCONATE 2 % 1 PACK (2 CLOTHS) TOP SCH (04:00)
[2018-01-17] MEDS: SODIUM CHLOR 0.9% 1000 ML INJ 1,000 ML IV SCH (06:05)
--- NOTE | 2018-01-17 06:36 | RADRPT ---
EXAM DATE/TIME: 01/17/2018 06:15 [facility] COMPARISON: CHEST SINGLE AP, January 16, 2018, 16:48. CHEST SINGLE AP, January 16, 2018, 16:34. CHEST SINGLE AP, Ap 2017, 17:12. INDICATIONS : Rule out pneumothorax. MEDICAL HISTORY : None. SURGICAL HISTORY : None. ENCOUNTER: Subsequent ACUITY: 2 days PAIN SCORE: 0/10 LOCATION: Bilateral chest FINDINGS: A single view of the chest demonstrates stable position of the small bore left thoracostomy tube. No pneumothorax on the current exam. Stable central haziness in a batwing distribution is concerning for some degree of vascular congestion or volume overload. No associated effusions. Heart size is normal . Life support tubes are all stable in position with an endotracheal tube appropriately positioned ab ove the jatinder. CONCLUSION: 1. Left sided small bore thoracostomy tube is stable in position. No pneumothorax. 2. Stable haziness in a batwing distribution of both hemithoraces concerning for some degree of vascu lar congestion or volume overload. 3. Stable position of life support tubes. Erwin Lisa MD on January 17, 2018 at 6:31 Board Certified Radiologist. This report was verified electronically.
--- NOTE | 2018-01-17 07:29 | HHI.CCPN ---
Subjective Remarks/Hospital Course Patient is a 57-year-old female with past medical history significant for alcohol abuse who was found unresponsive in her bathroom by her brother. Patient lives with her brother and family, and apparently they heard a fall and checked on her and she was lying on the ground, confused lethargic. Patient initially opened her eyes but then again level of consciousness started to deteriorate. Emergently taken to [facility] by EMS. Intubated for airway protection. CT of the head at [facility] showed subdural hemorrhage along tentorium and falx and subarachnoid hemorrhage. Patient has reported a history of headache yesterday night. Patient was emergently transferred to [facility] for further workup. Patient was immediately evaluated after arrival to the [facility] ICU. She withdraws to pain otherwise no spontaneous eye opening or movements. Remain hypoxemic with bilateral infiltrates on chest x-ray. Patient was emergently sent for a CT of the head and CT angiogram of brain and neck. CT brain here confirmed interhemispheric and bifrontal subdural hemorrhage, intraventricular hemorrhage involving third fourth and lateral ventricles, and subarachnoid hemorrhage. 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 Discussed with neurosurgery Dr. Mckinley, and I contacted interventional radiologist Dr. Erwin Lisa. He is unable to coil this aneurysm and he recommends transfer to [facility]. At this time we will target a systolic blood pressure less than 120 as aneurysm is not secure. Stat order for starting Nimotop given. Arrangements are being made to transfer her to [facility]. Keep Na 145-150. EVD planned if clinical deterioration or delay in transfer. SUBJ 01/17/18: Patient remains extremely critical. Remains in profound shock despite being on epinephrine 15 mcg/min, Levophed 55 mcg/min and Jose-Synephrine 500 mcg/min. her neuro exam is concerning for brain . Pupils are fixed and dilated, no corneal reflexes no withdrawal to pain however the patient is too unstable for a nuclear medicine flow study. EF on bedside echo 25-30%. Transferred to [facility] was canceled yesterday due to cardiac arrest and following ACLS. Extensively discussed with brother Objective Vital Signs Date Time Temp Pulse Resp B/P (MAP) Pulse Ox O2 Delivery O2 Flow Rate FiO2 01/17/18 04:00 97.7 132 24 64/46 (52) 93 4/29/18 19:00 Mechanical Ventilator 100 Result Diagram: 01/16/18204401/16/182044 Other Results Laboratory Tests Test 01/16/18 10:00 01/16/18 12:15 01/16/18 16:10 01/16/18 17:55 Blood Gas Puncture Site RT RADIAL RT RADIAL ART LINE ART LINE Blood Gas Patient Temperature 98.6 98.6 98.6 98.6 Blood Gas HCO3 16 mmol/L (22-26) 15 mmol/L (22-26) 18 mmol/L (22-26) 22 mmol/L (22-26) Blood Gas Base Excess -9.4 mmol/L (-2-2) -9.5 mmol/L (-2-2) -8.3 mmol/L (-2-2) -3.6 mmol/L (-2-2) Blood Gas Oxygen Saturation 85 % (90-100) 97 % (90-100) 86 % (90-100) 98 % ( 90-100) Arterial Blood pH 7.26 (7.380-7.420) 7.36 (7.380-7.420) 7.24 (7.380-7.420) 7.32 (7.380-7.420) Arterial Blood Partial Pressure CO2 38 mmHg (38-42) 28 mmHg (38-42) 43 mmHg (38-42) 43 mmHg (38-42) Arterial Blood Partial Pressure O2 63 mmHg (61-120) 179 mmHg (61-120) 65 mmHg (61-120) 199 mmHg (61-120) Arterial Blood Oxygen Content 23.8 Vol % (12.0-20.0) 29.7 Vol % (12.0-20.0) 22.7 Vol % (12.0-20.0) 24.6 Vol % (12.0-20.0) Arterial Blood Carboxyhemoglobin 1.5 % (0-4) 0.8 % (0-4) 0.4 % (0-4) 0.4 % (0-4) Arterial Blood Methemoglobin 0.8 % (0-2) 0.8 % (0-2) 0.9 % (0-2) 0.8 % (0-2) Blood Gas Hemoglobin 20.0 G/DL (12.0-16.0) 21.6 G/DL (12.0-16.0) 18.8 G/DL (12.0-16.0) 17.7 G/DL (12.0-16.0) Oxygen Delivery Device VENTILATOR VENTILATOR VENTILATOR VENTILATOR Blood Gas Ventilator Setting PRVC18/500/0.9/+5 PRVC18/500/0.9/+12 TRANDPORT SETTINGS PRVC24/550/0.9/+15 Blood Gas Inspired Oxygen 100 % 80 % 100 % 100 % Imaging See HPI Procedures Intubated at [facility] Objective Remarks GENERAL: Unresponsive, intubated on ventilator. Not on any sedation for approximately 15-16 hours SKIN: Warm/dry. Skin is mottled HEAD: Atraumatic. Normocephalic. EYES: Pupils equal dilated and fixed, right eye has cataract. No corneal reflexes ENT: No nasal bleeding or discharge. Orotracheally intubated NECK: Trachea midline. No JVD. CARDIOVASCULAR: Regular rate and rhythm. No murmur appreciated. Profoundly hypotensive on 3 pressors. EF appears to be 25% RESPIRATORY: Bilateral coarse rhonchi and few crackles. Breath sounds equal bilaterally. On ACV with PEEP of 12 GASTROINTESTINAL: Abdomen soft, non-tender, nondistended. MUSCULOSKELETAL: No obvious deformities. No clubbing. Extensive skin mottling. Poor peripheral perfusion NEUROLOGICAL: Unresponsive on the vent. Pupils equal dilated and fixed, right eye has cataract. No corneal reflexes. No withdrawal to deep pain. No doll's eye. Clinical exam concerning for brain Urinary Catheter: Yes Assessment to: Continue Vascular Central Line Catheter: Yes Assessment to: Continue A/P Assessment and Plan Assessment and Plan NEURO: Probable brain Acute aneurysmal subarachnoid hemorrhage, 9.1 mm a calm aneurysm Interhemispheric and bifrontal subdural hemorrhage most likely secondary to trauma from fall Intraventricular hemorrhage involving third fourth and lateral ventricles Alcohol dependence Acute encephalopathy -Clinical exam concerning for brain however patient is too unstable for nuclear medicine brain flow study or repeat CT scan -Patient is not stable for apnea test -CT brain showed interhemispheric and bifrontal subdural hemorrhage, intraventricular hemorrhage involving third fourth and lateral ventricles, and subarachnoid hemorrhage, neurosurgery Dr. 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 Discussed with Dr. Lisa who recommended transfer to [facility] -3% saline to target sodium 150-155. Dr. Mckinley neurosurgery -Supplement thiamine, watch for seizure. No seizure prophylaxis recommended at this time -Avoid hyponatremia hypomagnesemia, avoid hypothermia -Tylenol as needed for fever RESP: Acute hypoxemic, hypercarbic respiratory failure Iatrogenic pneumothorax resolved with chest tube Aspiration pneumonitis versus pulmonary edema -ACV, DuoNeb every 6 hours scheduled and as needed -f/u Sputum culture, Empiric Zosyn for aspiration pneumonia -Ventilator bundle, keep head of the bed elevated at least 30 -Left pig tail chest tube to suction CV: Severe refractory shock, multifactorial Cardiomyopathy, EF 25% on bedside echo -Currently on 15 mcg/min of epinephrine, 55 mcg/min of Levophed, and Jose- Synephrine 500 mcg/min -No escalation of pressors. DNR -Continue maintenance IV fluids. 2 L normal saline additional bolus ordered GI: -N.p.o., IV Famotidine : Acute kidney injury -Monitor renal function closely. Hernandez catheter. -Oliguric now attempt fluid boluses -Bicarb as needed ID: Aspiration pneumonitis Probable sepsis -F/u sputum urine culture -Zosyn 3.375 GM q6hr HEME: Polycythemia -Monitor CBC, CMP -Repeat labs shows persistent polycythemia, probably undiagnosed prior to admission -No treatment can offered for at this time ENDO: -Replace electrolytes per protocol PROPH: -Bilateral lower extremity SCDs/BRIAN. Chemical DVT prophylaxis is contraindicated at this time. IV Protonix LINES: -Place subclavian central line CC time 45 min excluding procedure Patient is extremely critical and terminal. She is DNR now with refractory shock but family at this point wants to continue life support and available treatment Addendum: I spoke in length with brother Low and daughter Marcia. I have expressed my concern that patient is probably brain , but I am unable to do confirmatory tests like apnea testing or brain flow due to hemodynamic instability. They have decided to withdraw active life support. I will proceed with necessary paperwork, and will proceed with withdrawal of life support, but it is quite possible the patient may pass away naturally without withdrawal Nikko Lafleur MD Jan 17, 2018 07:29
[2018-01-17 07:48] LABS: AUTOMATED NEUTROPHIL # 6.4 TH/MM3 (1.8-7.7); BASOPHIL % 0.5 % (0.0-2.0); EOSINOPHIL % 0.1 % (0.0-4.0); HEMATOCRIT 54.1 % (35.0-46.0); HEMOGLOBIN 17.6 GM/DL (11.6-15.3); LYMPH % 26.3 % (9.0-44.0); LYMPHOCYTE # 2.5 TH/MM3 (1.0-4.8); MEAN CELL VOLUME 107.6 FL (80.0-100.0); MEAN CORPUSCULAR HGB CONC 32.5 % (32.0-36.0); MEAN PLATELET VOLUME 8.9 FL (7.0-11.0); MONO % 4.7 % (0.0-8.0); MONOCYTE # 0.4 TH/MM3 (0-0.9); NEUT % 68.4 % (16.0-70.0); PLATELET COUNT 81 TH/MM3 (150-450); RED BLOOD COUNT 5.02 MIL/MM3 (4.00-5.30); RED CELL DISTRIBUTION WIDTH 17.5 % (11.6-17.2); WHITE BLOOD COUNT 9.4 TH/MM3 (4.0-11.0)
[2018-01-17] MEDS: CHLORHEXIDINE 0.12% (ORAL KIT) 15 ML CUP MT SCH (08:00)
[2018-01-17 08:19] LABS: ALBUMIN 1.1 GM/DL (3.4-5.0); ALKALINE PHOSPHATASE 93 U/L (45-117); ALT (GPT) 1587 U/L (10-53); AST (GOT) 3390 U/L (15-37); BICARBONATE 12.9 MEQ/L (21.0-32.0); BLOOD UREA NITROGEN 20 MG/DL (7-18); CALCIUM 8.2 MG/DL (8.5-10.1); CHLORIDE 127 MEQ/L (98-107); CREATININE 2.18 MG/DL (0.50-1.00); GLOMERULAR FILTRATION RATE 23 ML/MIN (>89); TOTAL BILIRUBIN ADULT 1.3 MG/DL (0.2-1.0); TOTAL PROTEIN 2.8 GM/DL (6.4-8.2)
[2018-01-17 08:20] LABS: GLUCOSE,RANDOM 38 MG/DL (74-106); SODIUM (NA) 157 MEQ/L (136-145)
[2018-01-17 08:35] LABS: BANDS 30 % (0-6); CORRECTED NUCLEATED RBC 3 /100 WBC (0-0); LYMPHOCYTES 9 % (9-44); METAMYELOCYTES 8 % (0-1); MONOCYTES 2 % (0-8); NEUTROPHIL # MANUAL DIFF 8.4 TH/MM3 (1.8-7.7); NUCLEATED RED BLOOD CELL 3 (0-0); POLYS (SEG NEUTROPHILS) 51 % (16-70); TOXIC VACUOLATION PRESENT (NONE SEEN)
[2018-01-17 08:36] LABS: TOXIC GRANULATION 1+ (NORMAL)
[2018-01-17] MEDS: SODIUM CHLORIDE 0.9% FLUSH 10 ML FLUSH IV FLUSH SCH (09:00)
[2018-01-17] MEDS: THIAMINE INJ 100 MG in SODIUM CHLORIDE 0.9% INJ 100 ML IV SCH (09:00)
[2018-01-17] MEDS ORDERED: PANTOPRAZOLE SODIUM 40 MG VIAL IV PUSH SCH (09:00)
--- NOTE | 2018-01-17 10:32 | HHI.NSPN ---
Subjective History 57-year-old lady with a subarachnoid hemorrhage from ruptured anterior communicating artery aneurysm. She is transferred from [facility] and apparently the interventional radiologist recommended she transferred to [facility] for further endovascular treatment of this aneurysm. She came in with a Ortega Coma Score 5 and while arrangements were made to transfer yesterday she went into cardiac arrest 2 and is currently on multiple vasopressor support with unable to maintain her blood pressure in the normal range as per the automatic bandsaw tender. Her examination and unfortunately has progressed to appears to be clinical brain . Discussion with family members undertaken and they have elected on making her DNR with withdrawal of ventilator support. Vitals . Vital Signs Date Time Temp Pulse Resp B/P (MAP) Pulse Ox O2 Delivery O2 Flow Rate FiO2 01/17/18 09:53 113 61/39 01/17/18 08:00 96.4 116 24 58/36 (43) 37 01/17/18 07:50 38 100 01/17/18 07:00 38 Mechanical Ventilator 100 01/17/18 07:00 116 01/17/18 04:00 97.7 132 24 64/46 (52) 93 01/17/18 00:00 95.9 152 24 85/63 (70) 92 01/16/18 23:00 135 01/16/18 20:00 93.7 161 18 110/98 (102) 77 01/16/18 19:00 77 Mechanical Ventilator 100 01/16/18 17:40 0 100 01/16/18 16:10 98 100 01/16/18 16:00 96.3 138 28 156/107 (123) 94 01/16/18 16:00 138 01/16/18 14:35 99 Ventilator 100 01/16/18 13:50 97 Ventilator 60 01/16/18 12:05 98 80 01/16/18 12:00 97.5 138 20 117/81 (93) 99 01/16/18 12:00 138 Physical Exam Head Head: Atraumatic Neuro Mental Status: Comatosed Pupils: Nonreactive bilaterally Ortega Coma Scale Best Eye Openin - None Best Verbal: 1 - None Best Motor: 1 - None Neuro Remarks She is not on any sedation and intubated on multiple vasopressors She does not open her eyes to painful stimulus Pupils are 6 mm fixed and dilated nonreactive bilaterally Negative corneal reflex Negative doll's reflex Negative gag reflex Negative cough reflex No motor response to painful stimulation No spontaneous respiration of the ventilator Cardiac Cardiac: Regular Rate & Rhythm Respiratory Respiratory: Rhonchi Vent Mode: CMV Gastrointestinal Gastrointestinal: Soft, Nontender Bowel Sounds: Diminished Genitourinary Genitourinary: Hernandez Catheter In Place, Yellow Musculoskeletal Extremities Upper Extremities Deltoid Bicep Tricep HI W. Ext Right Left Lower Extremeties Ilio Quad Plantar Dorsi EHL Right Left Dermatologic Dermatologic: Skin Intact Extremities Edema: SCDs Objective Infectious Disease Cultures Microbiology Date/Time Source Procedure Growth Status 01/16/18 10:47 Sputum Endotracheal Gram Stain - Final Resulted 01/16/18 10:47 Sputum Endotracheal Sputum Culture Pending Resulted 01/16/18 13:20 Urine Catheterized Urine Urine Culture Pending Received Labs Laboratory Tests 01/16/18 13:30 01/16/18 15:03 Total Protein 3.7, Albumin 1.7, Calcium Level 5.7, Phosphorus Level 1.9, Magnesium Level 1.1, Alkaline Phosphatase 63, Aspartate Amino Transf (AST/SGOT) 75, Alanine Aminotransferase (ALT/SGPT) 24, Total Bilirubin 0.4 01/16/18 20:45 Total Protein 4.2, Albumin 1.9, Calcium Level 11.4 #, Phosphorus Level 6.2 #, Magnesium Level 1.6, Alkaline Phosphatase 107, Aspartate Amino Transf (AST/SGOT ) 255, Alanine Aminotransferase (ALT/SGPT) 88, Total Bilirubin 1.5 01/17/18 07:00 Total Protein 2.8 #, Albumin 1.1 #, Calcium Level 8.2 #, Alkaline Phosphatase 93 , Aspartate Amino Transf (AST/SGOT) 3390, Alanine Aminotransferase (ALT/SGPT) 1587, Total Bilirubin 1.3 Laboratory Tests Test 01/16/18 15:03 01/16/18 20:45 01/16/18 21:19 01/17/18 07:00 Blood Urea Nitrogen 11 MG/DL 14 MG/DL 20 MG/DL Creatinine 0.36 MG/DL 1.13 MG/DL 2.18 MG/DL Random Glucose 118 MG/DL 196 MG/DL 38 MG/DL Total Protein 3.7 GM/DL 4.2 GM/DL 2.8 GM/DL Albumin 1.7 GM/DL 1.9 GM/DL 1.1 GM/DL Calcium Level 5.7 MG/DL 11.4 MG/DL 8.2 MG/DL Phosphorus Level 1.9 MG/DL 6.2 MG/DL Magnesium Level 1.1 MG/DL 1.6 MG/DL Alkaline Phosphatase 63 U/L 107 U/L 93 U/L Aspartate Amino Transf (AST/SGOT) 75 U/L 255 U/L 3390 U/L Alanine Aminotransferase (ALT/SGPT) 24 U/L 88 U/L 1587 U/L Total Bilirubin 0.4 MG/DL 1.5 MG/DL 1.3 MG/DL Sodium Level 150 MEQ/L 149 MEQ/L 157 MEQ/L Potassium Level 3.3 MEQ/L 3.9 MEQ/L 5.2 MEQ/L Chloride Level 126 MEQ/L 122 MEQ/L 127 MEQ/L Carbon Dioxide Level 15.2 MEQ/L 14.1 MEQ/L 12.9 MEQ/L Anion Gap 9 MEQ/L 13 MEQ/L 17 MEQ/L Estimat Glomerular Filtration Rate 187 ML/MIN 50 ML/MIN 23 ML/MIN Protein Corrected Calcium 7.3 MG/DL Lactic Acid Level 7.7 mmol/L Laboratory Tests Test 01/16/18 13:20 Urine Opiates Screen NEG Urine Barbiturates Screen NEG Urine Amphetamines Screen NEG Urine Benzodiazepines Screen NEG Urine Cocaine Screen NEG Urine Cannabinoids Screen POS Imaging Remarks Last Impressions Chest X-Ray 01/17/18 0000 Signed Impressions: Service Date/Time: Wednesday, January 17, 2018 06:15 - CONCLUSION: 1. Left sided small bore thoracostomy tube is stable in position. No pneumothorax. 2. Stable haziness in a batwing distribution of both hemithoraces concerning for some degree of vascular congestion or volume overload. 3. Stable position of life support tubes. Erwin Lisa MD Head CT 01/16/18 1010 Signed Impressions: Service Date/Time: Tuesday, January 16, 2018 10:29 - CONCLUSION: Subarachnoid, intraventricular and subdural hemorrhage is seen as above. There is no midline shift or mass effect. No masses are seen. Brady Lara MD Neck CTA 01/16/18 0000 Signed Impressions: Service Date/Time: Tuesday, January 16, 2018 10:29 - CONCLUSION: 1. Right and left carotid arteries are widely patent as well as the vertebral arteries. 2. Airspace consolidation and effusions bilaterally. 3. Anterior communicating artery aneurysm. 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 Brady Lara MD Assessment & Plan Assessment 57-year-old lady with a ruptured anterior communicating artery aneurysm with very poor initial exam which is progressive brain with a cardiac arrest 2 on multiple vasopressor support. Unfortunately this is not a survivable injury. Discussed with automatic bandsaw tender Dr. Lafleur and brother at the bedside. We will honor family's wishes and withdraw care with comfort measures. Milan Lima MD Jan 17, 2018 10:32
--- NOTE | 2018-01-17 11:18 | PD.CONS ---
Consult Service Palliative Care . Consult Requested By Dr. Lafleur . Primary Care Physician Unknown . Reason for Consultation a. To assist with evaluation and management of symptoms including: dyspnea. b. To assist medical decision maker(s) with: better understanding of current medical conditions; weighing benefits/burdens of medical treatment options; making medical treatment decisions. . HPI History of Present Illness Ms. Anthony is a 57 year old female with past medical history of alcohol and tobacco use. Patient suffered a fall on 01/16/18, she was initially confused and then went unresponsive. Notes indicate patient had reported a headache the night prior. She was emergently intubated for airway protection. CT head at [facility] revealed subdural hemorrhage along tentorium and falx and subarachnoid hemorrhage. Patient was emergently transferred to [facility] for further workup. Upon arrival to [facility] she was found to withdraw to noxious stimuli without spontaneous eye opening. She remained hypoxemic with bilateral infiltrates on chest xray. Patient was sent for emergent CT of the head and CT angiogram of brain and neck. CT brain here confirmed interhemispheric and bifrontal subdural hemorrhage, intraventricular hemorrhage involving third fourth and lateral ventricles, and subarachnoid hemorrhage. 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 Case was discussed with neurosurgery, Dr. Mckinley, and interventional radiologist Dr. Erwin Lisa. Radiology was unable to coil this aneurysm and recommended transfer to [facility] () [place]. While transfer arrangements were being made for transfer to she suffered cardiac arrest and transfer was cancelled. Patient remains in ICU on multiple pressor support with systolic BP 50's and mechanical vent FiO2 100%. In speaking with Dr. Lafleur, he believes the patient may have progressed to brain though is hemodynamically unstable to pursue brain testing. Family has verbalized desire to proceed with transition to comfort with withdrawal of life support. Patient is recently , has 1 son (in group home) Function/Cognitive Trajectory Patient has had decline over the past few months after a recent divorce and the of her mother. She was living with her brother, he reports she was drinking a lot. He moved her here from [place] to help her decrease drinking and get back on her feet. . Review of Systems ROS Limitations: Intubated, Unresponsive Constitutional: COMPLAINS OF: Fatigue, Change in appetite (decreased), Generalized weakness Endocrine: DENIES: Abnorml menstrual pattern, Heat/cold intolerance, Polydipsia , Polyuria, Polyphagia Ears, nose, mouth, throat: DENIES: Tinnitus, Hearing loss, Vertigo, Nasal discharge, Oral lesions, Throat pain, Hoarseness, Ear Pain, Running Nose, Epistaxis, Sinus Pain, Toothache, Odynophagia Respiratory: COMPLAINS OF: Shortness of breath Gastrointestinal: DENIES: Abdominal pain, Black stools, Bloody stools, Constipation, Diarrhea, Nausea, Vomiting, Difficulty Swallowing, Anorexia, Dyspepsia or heartburn, Excessive gas, Bloating, Vomiting blood Genitourinary: DENIES: Abnormal vaginal bleeding, Dysmenorrhea, Dyspareunia, Sexual dysfunction, Urinary frequency, Urinary incontinence, Urgency, Hematuria , Dysuria, Nocturia, Vaginal discharge, Hesitancy, Dribbling, Decreased stream Hematologic/Lymphatics: COMPLAINS OF: Bruising Immunologic/Allergic: DENIES: Eczema, Urticaria Neurologic: COMPLAINS OF: Headache Psychiatric: COMPLAINS OF: Depression Other ROS: ROS per brother and EMR review, pt unable to communicate Past Family Social History Coded Allergies: No Allergy Information Available (Unverified , 01/16/18) Intubated Past Medical History Alcohol and tobacco use. Past Surgical History rectal surgery, unknown details. . Reported Medications None. . Current Medications Medications (Trade) Dose Ordered Sig/Adela Route Start Time Stop Time Status Last Admin Sodium Chloride 1,000 ml @ 150 mls/hr Q6H40M IV 01/16/18 10:05 01/17/18 06:05 (NS Flush) 2 ml UNSCH PRN IV FLUSH 01/16/18 10:15 (NS Flush) 2 ml BID IV FLUSH 01/16/18 21:00 01/17/18 09:00 (Tylenol) 650 mg Q6H PRN PO 01/16/18 10:15 (Morphine Inj) 2 mg Q2H PRN IV PUSH 01/16/18 10:15 (Duoneb Neb) 1 ampule Q6HR NEB NEB 01/16/18 10:15 01/16/18 12:05 (Duoneb Neb) 1 ampule Q4HR NEB PRN INH 01/16/18 10:15 (Peridex 0.12% Liq) 15 ml BID@08,20 MT 01/16/18 20:00 01/17/18 08:00 (Protonix Inj) 40 mg DAILY IV PUSH 01/17/18 09:00 ([facility] 1 Q361D XX 01/16/18 10:15 (Chlorhexidine 2% Cloth) 3 pack Taper DAILY@04 TOP 01/17/18 04:00 01/13/19 03:59 (Chlorhexidine 2% Cloth) 3 pack UNSCH PRN TOP 01/16/18 10:15 Potassium Chloride 100 ml @ 50 mls/hr Q2H PRN IV 01/16/18 10:15 Potassium Chloride 100 ml @ 50 mls/hr Q2H PRN IV 01/16/18 10:15 (K-Lyte Cl Eff) 50 meq UNSCH PRN PO 01/16/18 10:15 Potassium Chloride 100 ml @ 25 mls/hr UNSCH PRN IV 01/16/18 10:15 Potassium Chloride 100 ml @ 50 mls/hr Q2H PRN IV 01/16/18 10:15 Magnesium Sulfate 4 gm/Sodium Chloride 100 ml @ 50 mls/hr UNSCH PRN IV 01/16/18 10:15 (Mag-Ox) 800 mg UNSCH PRN PO 01/16/18 10:15 Magnesium Sulfate 2 gm/Sodium Chloride 100 ml @ 50 mls/hr UNSCH PRN IV 01/16/18 10:15 (K-Phos) 2,000 mg Q4H PRN PO 01/16/18 10:15 Sodium Phosphate 30 mmol/Sodium Chloride 250 ml @ 42 mls/hr UNSCH PRN IV 01/16/18 10:15 (K-Phos) 2,000 mg UNSCH PRN PO/TUBE 01/16/18 10:15 Potassium Phosphate 30 mmol/ Sodium Chloride 260 ml @ 42 mls/hr UNSCH PRN IV 01/16/18 10:15 Propofol 100 ml @ 1.74 mls/hr TITRATE PRN IV 01/16/18 11:00 01/16/18 10:00 (Nimotop) 60 mg Q4HR PO 01/16/18 12:00 01/16/18 16:00 (Brethine Inj) 1 mg UNSCH PRN SQ 01/16/18 11:45 Thiamine HCl 100 mg/Sodium Chloride 101 ml @ 101 mls/hr DAILY IV 01/16/18 13:00 01/16/18 13:25 Piperacillin Sod/ Tazobactam Sod 50 ml @ 100 mls/hr Q6H IV 01/16/18 14:00 01/17/18 02:00 Sodium Chloride 500 ml @ 30 mls/hr CONTINUOUS IV 01/16/18 12:30 01/21/18 12:29 Norepinephrine Bitartrate 16 mg/ Sodium Chloride 250 ml @ 1.87 mls/hr TITRATE PRN IV 01/16/18 22:30 Phenylephrine HCl 160 mg/Sodium Chloride 500 ml @ 7.5 mls/hr TITRATE PRN IV 01/16/18 22:30 Epinephrine HCl 8 mg/Sodium Chloride 250 ml @ 5.62 mls/hr TITRATE PRN IV 01/16/18 22:30 01/17/18 09:53 Family History Mother at 82 with history of emphysema, COPD, osteoporosis. Father of emphysema. . Substance Use Tobacco: smokes 1 PPD. Alcohol: Drinks more than a pint of vodka daily. Prescription med abuse: none. Illicits: none. . 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 Has 1 daughter and 1 son. Worked recently at [employer]. . Spiritual/Cultural Factors Not important part of patent's life. . Living Will: Never completed Health Care Surrogate: Never completed Durable Power of Director Of Sales Marketing: Never completed Health Care Surrogate(s): No written advanced directives. Patient is not capacitated and will not regain capacity. . According to [place] statutes, health care proxy decision making falls to majority of adult children, she has 1 son and 1 daughter. Today's verbally stated goals: Patient is not capacitated and will not regain capacity. Family/friends goals: Family has elected to transition to comfort measures with compassionate withdrawal of life support. . Ethical and Legal Issues No written advanced directives. Patient is not capacitated and will not regain capacity. . According to [place] statutes, health care proxy decision making falls to majority of adult children, she has 1 son and 1 daughter. Physical Exam Vital Signs Date Time Temp Pulse Resp B/P (MAP) Pulse Ox O2 Delivery O2 Flow Rate FiO2 01/17/18 09:53 113 61/39 01/17/18 08:00 96.4 116 24 58/36 (43) 37 01/17/18 07:50 38 100 01/17/18 07:00 38 Mechanical Ventilator 100 01/17/18 07:00 116 01/17/18 04:00 97.7 132 24 64/46 (52) 93 01/17/18 00:00 95.9 152 24 85/63 (70) 92 01/16/18 23:00 135 01/16/18 20:00 93.7 161 18 110/98 (102) 77 01/16/18 19:00 77 Mechanical Ventilator 100 01/16/18 17:40 0 100 01/16/18 16:10 98 100 01/16/18 16:00 96.3 138 28 156/107 (123) 94 01/16/18 16:00 138 01/16/18 14:35 99 Ventilator 100 01/16/18 13:50 97 Ventilator 60 01/16/18 12:05 98 80 01/16/18 12:00 97.5 138 20 117/81 (93) 99 01/16/18 12:00 138 Exam CONSTITUTIONAL/GENERAL: This is an adequately nourished patient, unresponsive on vent. TUBES/LINES/DRAINS: ETT, OG, left IJ central line, right femoral line, Hernandez, left chest tube, Loulou Hugger. SKIN: Ecchymoses on upper extremities. Skin temperature appropriate. HEAD: Atraumatic. EYES: Pupils dilated and fixed. ENT: Unable to assess hearing. Nose without bleeding or purulent drainage. NECK: Trachea midline. CARDIOVASCULAR: Regular rate and rhythm without murmurs. RESPIRATORY/CHEST: Breath sounds coarse bilaterally. left chest tube. GASTROINTESTINAL: Abdomen soft, nondistended. GENITOURINARY: Without palpable bladder distension. Hernandez catheter in place. MUSCULOSKELETAL: Extremities with severe mottling from toes to abdomen. LYMPHATICS: Not examined. NEUROLOGICAL: Unresponsive. PSYCHIATRIC: Unresponsive. . Diagnostic Tests Laboratory Laboratory Tests Test 01/16/18 10:00 01/16/18 10:25 01/16/18 12:15 01/16/18 13:20 Blood Gas Puncture Site RT RADIAL RT RADIAL Blood Gas Patient Temperature 98.6 98.6 Blood Gas HCO3 16 mmol/L (22-26) 15 mmol/L (22-26) Blood Gas Base Excess -9.4 mmol/L (-2-2) -9.5 mmol/L (-2-2) Blood Gas Oxygen Saturation 85 % (90-100) 97 % (90-100) Arterial Blood pH 7.26 (7.380-7.420) 7.36 (7.380-7.420) Arterial Blood Partial Pressure CO2 38 mmHg (38-42) 28 mmHg (38-42) Arterial Blood Partial Pressure O2 63 mmHg (61-120) 179 mmHg (61-120) Arterial Blood Oxygen Content 23.8 Vol % (12.0-20.0) 29.7 Vol % (12.0-20.0) Arterial Blood Carboxyhemoglobin 1.5 % (0-4) 0.8 % (0-4) Arterial Blood Methemoglobin 0.8 % (0-2) 0.8 % (0-2) Blood Gas Hemoglobin 20.0 G/DL (12.0-16.0) 21.6 G/DL (12.0-16.0) Oxygen Delivery Device VENTILATOR VENTILATOR Blood Gas Ventilator Setting PRVC18/500/0.9/+5 PRVC18/500/0.9/+12 Blood Gas Inspired Oxygen 100 % 80 % Nasal Screen MRSA (PCR) MRSA NOT DETECTED (NOT Urine Color YELLOW (YELLW/STRAW) Urine Turbidity CLEAR (CLEAR) Urine pH 6.0 (5.0-8.5) Urine Specific Curtis GREATER THAN 1.050 Urine Protein 30 mg/dL (NEG-TRACE) Urine Glucose (UA) NEG mg/dL (NEG) Urine Ketones NEG mg/dL (NEG) Urine Occult Blood MOD (NEG) Urine Nitrite POS (NEG) Urine Bilirubin NEG (NEG) Urine Urobilinogen LESS THAN 2.0 MG/DL (LESS Urine Leukocyte Esterase SMALL (NEG) Urine RBC 20 /hpf (0-3) Urine WBC 49 /hpf (0-5) Urine Squamous Epithelial Cells <1 /hpf (0-5) Urine Bacteria FEW /hpf (NONE) Urine Mucus FEW /lpf (OCC) Microscopic Urinalysis Comment CATH-CULTURE IND Urine Opiates Screen NEG (NEG) Urine Barbiturates Screen NEG (NEG) Urine Amphetamines Screen NEG (NEG) Urine Benzodiazepines Screen NEG (NEG) Urine Cocaine Screen NEG (NEG) Urine Cannabinoids Screen POS (NEG) Test 01/16/18 13:30 01/16/18 15:03 01/16/18 16:10 01/16/18 17:55 White Blood Count 19.2 TH/MM3 (4.0-11.0) Red Blood Count 5.90 MIL/MM3 (4.00-5.30) Hemoglobin 21.5 GM/DL (11.6-15.3) Hematocrit 61.4 % (35.0-46.0) Mean Corpuscular Volume 104.1 FL (80.0-100.0) Mean Corpuscular Hemoglobin 36.4 PG (27.0-34.0) Mean Corpuscular Hemoglobin Concent 34.9 % (32.0-36.0) Red Cell Distribution Width 16.8 % (11.6-17.2) Platelet Count 278 TH/MM3 (150-450) Mean Platelet Volume 11.0 FL (7.0-11.0) Neutrophils (%) (Auto) 79.9 % (16.0-70.0) Lymphocytes (%) (Auto) 12.0 % (9.0-44.0) Monocytes (%) (Auto) 6.8 % (0.0-8.0) Eosinophils (%) (Auto) 0.2 % (0.0-4.0) Basophils (%) (Auto) 1.1 % (0.0-2.0) Neutrophils # (Auto) 15.4 TH/MM3 (1.8-7.7) Lymphocytes # (Auto) 2.3 TH/MM3 (1.0-4.8) Monocytes # (Auto) 1.3 TH/MM3 (0-0.9) Eosinophils # (Auto) 0.0 TH/MM3 (0-0.4) Basophils # (Auto) 0.2 TH/MM3 (0-0.2) CBC Comment DIFF FINAL Differential Comment Blood Urea Nitrogen 11 MG/DL (7-18) Creatinine 0.36 MG/DL (0.50-1.00) Random Glucose 118 MG/DL (74-106) Total Protein 3.7 GM/DL (6.4-8.2) Albumin 1.7 GM/DL (3.4-5.0) Calcium Level 5.7 MG/DL (8.5-10.1) Phosphorus Level 1.9 MG/DL (2.5-4.9) Magnesium Level 1.1 MG/DL (1.5-2.5) Alkaline Phosphatase 63 U/L (45-117) Aspartate Amino Transf (AST/SGOT) 75 U/L (15-37) Alanine Aminotransferase (ALT/SGPT) 24 U/L (10-53) Total Bilirubin 0.4 MG/DL (0.2-1.0) Sodium Level 150 MEQ/L (136-145) Potassium Level 3.3 MEQ/L (3.5-5.1) Chloride Level 126 MEQ/L (98-107) Carbon Dioxide Level 15.2 MEQ/L (21.0-32.0) Anion Gap 9 MEQ/L (5-15) Estimat Glomerular Filtration Rate 187 ML/MIN (>89) Protein Corrected Calcium 7.3 MG/DL (8.5-10.1) Blood Gas Puncture Site ART LINE ART LINE Blood Gas Patient Temperature 98.6 98.6 Blood Gas HCO3 18 mmol/L (22-26) 22 mmol/L (22-26) Blood Gas Base Excess -8.3 mmol/L (-2-2) -3.6 mmol/L (-2-2) Blood Gas Oxygen Saturation 86 % (90-100) 98 % (90-100) Arterial Blood pH 7.24 (7.380-7.420) 7.32 (7.380-7.420) Arterial Blood Partial Pressure CO2 43 mmHg (38-42) 43 mmHg (38-42) Arterial Blood Partial Pressure O2 65 mmHg (61-120) 199 mmHg (61-120) Arterial Blood Oxygen Content 22.7 Vol % (12.0-20.0) 24.6 Vol % (12.0-20.0) Arterial Blood Carboxyhemoglobin 0.4 % (0-4) 0.4 % (0-4) Arterial Blood Methemoglobin 0.9 % (0-2) 0.8 % (0-2) Blood Gas Hemoglobin 18.8 G/DL (12.0-16.0) 17.7 G/DL (12.0-16.0) Oxygen Delivery Device VENTILATOR VENTILATOR Blood Gas Ventilator Setting [place] SETTINGS PRVC24/550/0.9/+15 Blood Gas Inspired Oxygen 100 % 100 % Test 01/16/18 20:45 01/16/18 21:19 01/17/18 07:00 White Blood Count 17.1 TH/MM3 (4.0-11.0) 9.4 TH/MM3 (4.0-11.0) Red Blood Count 5.75 MIL/MM3 (4.00-5.30) 5.02 MIL/MM3 (4.00-5.30) Hemoglobin 19.9 GM/DL (11.6-15.3) 17.6 GM/DL (11.6-15.3) Hematocrit 60.2 % (35.0-46.0) 54.1 % (35.0-46.0) Mean Corpuscular Volume 104.7 FL (80.0-100.0) 107.6 FL (80.0-100.0) Mean Corpuscular Hemoglobin 34.5 PG (27.0-34.0) 35.0 PG (27.0-34.0) Mean Corpuscular Hemoglobin Concent 33.0 % (32.0-36.0) 32.5 % (32.0-36.0) Red Cell Distribution Width 16.6 % (11.6-17.2) 17.5 % (11.6-17.2) Platelet Count 122 TH/MM3 (150-450) 81 TH/MM3 (150-450) Mean Platelet Volume 8.0 FL (7.0-11.0) 8.9 FL (7.0-11.0) Prothrombin Time 15.5 SEC (9.8-11.6) Prothromb Time International Ratio 1.5 RATIO Activated Partial Thromboplast Time 39.3 SEC (24.3-30.1) Blood Urea Nitrogen 14 MG/DL (7-18) 20 MG/DL (7-18) Creatinine 1.13 MG/DL (0.50-1.00) 2.18 MG/DL (0.50-1.00) Random Glucose 196 MG/DL (74-106) 38 MG/DL (74-106) Total Protein 4.2 GM/DL (6.4-8.2) 2.8 GM/DL (6.4-8.2) Albumin 1.9 GM/DL (3.4-5.0) 1.1 GM/DL (3.4-5.0) Calcium Level 11.4 MG/DL (8.5-10.1) 8.2 MG/DL (8.5-10.1) Phosphorus Level 6.2 MG/DL (2.5-4.9) Magnesium Level 1.6 MG/DL (1.5-2.5) Alkaline Phosphatase 107 U/L (45-117) 93 U/L (45-117) Aspartate Amino Transf (AST/SGOT) 255 U/L (15-37) 3390 U/L (15-37) Alanine Aminotransferase (ALT/SGPT) 88 U/L (10-53) 1587 U/L (10-53) Total Bilirubin 1.5 MG/DL (0.2-1.0) 1.3 MG/DL (0.2-1.0) Sodium Level 149 MEQ/L (136-145) 157 MEQ/L (136-145) Potassium Level 3.9 MEQ/L (3.5-5.1) 5.2 MEQ/L (3.5-5.1) Chloride Level 122 MEQ/L (98-107) 127 MEQ/L (98-107) Carbon Dioxide Level 14.1 MEQ/L (21.0-32.0) 12.9 MEQ/L (21.0-32.0) Anion Gap 13 MEQ/L (5-15) 17 MEQ/L (5-15) Estimat Glomerular Filtration Rate 50 ML/MIN (>89) 23 ML/MIN (>89) Lactic Acid Level 7.7 mmol/L (0.4-2.0) Neutrophils (%) (Auto) 68.4 % (16.0-70.0) Lymphocytes (%) (Auto) 26.3 % (9.0-44.0) Monocytes (%) (Auto) 4.7 % (0.0-8.0) Eosinophils (%) (Auto) 0.1 % (0.0-4.0) Basophils (%) (Auto) 0.5 % (0.0-2.0) Neutrophils # (Auto) 6.4 TH/MM3 (1.8-7.7) Lymphocytes # (Auto) 2.5 TH/MM3 (1.0-4.8) Monocytes # (Auto) 0.4 TH/MM3 (0-0.9) Eosinophils # (Auto) 0.0 TH/MM3 (0-0.4) Basophils # (Auto) 0.0 TH/MM3 (0-0.2) CBC Comment AUTO DIFF Differential Total Cells Counted 100 Neutrophils % (Manual) 51 % (16-70) Band Neutrophils % 30 % (0-6) Lymphocytes % 9 % (9-44) Monocytes % 2 % (0-8) Neutrophils # (Manual) 8.4 TH/MM3 (1.8-7.7) Metamyelocytes 8 % (0-1) Nucleated Red Blood Cells 3 /100 WBC (0-0) Differential Comment FINAL DIFF MANUAL Toxic Granulation 1+ (NORMAL) Toxic Vacuolation PRESENT (NONE SEEN) Platelet Estimate LOW (NORMAL) Platelet Morphology Comment NORMAL (NORMAL) Result Diagram: 01/17/18 0700 01/17/18 0700 Microbiology Microbiology Date/Time Source Procedure Growth Status 01/16/18 10:47 Sputum Endotracheal Gram Stain - Final Resulted 01/16/18 10:47 Sputum Endotracheal Sputum Culture Pending Resulted 01/16/18 13:20 Urine Catheterized Urine Urine Culture Pending Received Imaging Last Impressions Chest X-Ray 01/17/18 0000 Signed Impressions: Service Date/Time: Wednesday, January 17, 2018 06:15 - CONCLUSION: 1. Left sided small bore thoracostomy tube is stable in position. No pneumothorax. 2. Stable haziness in a batwing distribution of both hemithoraces concerning for some degree of vascular congestion or volume overload. 3. Stable position of life support tubes. Erwin Lisa MD Head CT 01/16/18 1010 Signed Impressions: Service Date/Time: Tuesday, January 16, 2018 10:29 - CONCLUSION: Subarachnoid, intraventricular and subdural hemorrhage is seen as above. There is no midline shift or mass effect. No masses are seen. Brady Lara MD Neck CTA 01/16/18 0000 Signed Impressions: Service Date/Time: Tuesday, January 16, 2018 10:29 - CONCLUSION: 1. Right and left carotid arteries are widely patent as well as the vertebral arteries. 2. Airspace consolidation and effusions bilaterally. 3. Anterior communicating artery aneurysm. 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 Brady Lara MD . Procedures * Intubated, central lines, arterial line, chest tube code blue. . Patient/Family Conference Present at Family Conference: Spoke with daughter, Marcia and sonKunal via phone. Also present brother, Roger at bedside. Also present nurse, Rosita Tam LCSW. . Family Conference Time (mins): 45 Family Conference Location: Bedside, Telephone Issues Discussed: * Palliative care role, purpose, approach * Additional medical, psychosocial, and spiritual history * Patients general health, functional status, and cognitive changes in the months leading up to the current hospitalization * Patient/family understanding of the current medical problems * Patient/family understanding of prognosis * Patients goals of care as best understood from advance directives and/or conversations and/or values * Current medical treatment options and benefits/burdens of those options * Likely scenarios comparing ongoing aggressive care with a transition to comfort measures only * Questions answered to the best of my ability * Palliative care contact information provided Family all in agreement that that patient would not want to have her dying artificially prolonged, they wish to proceed with withdrawal of life support. Anticipatory guidance provided. . Assessment and Plan Disease Oriented Problem List: (1) Interhemispheric and bifrontal SDH (2) Acute hypoxemic respiratory failure (3) Acute encephalopathy (4) IVH (intraventricular hemorrhage) (5) Aneurysmal subarachnoid hemorrhage Symptom Scale: (1) Dyspnea 0-10 Scale: Unable to quantify Pertinent Non-Medical Issues Psychosocial: . 1 son, Kunal in group home in [facility]. 1 daughter, Marcia lives in [place]. Spiritual: Adventism is not important part of her life, welcomes deputy register of deeds support. Legal: No written advanced directives. Patient is not capacitated and will not regain capacity. According to [place] statutes, [facility] care proxy decision making falls to majority of adult children, she has 1 son and 1 daughter. Ethical issues impacting care: None. . Important Contacts * Marcia Anthony daughter/ HCP: [phone] * Kunal Anthony son/HCP: in group home [id number] Intensive Care Specialist # [phone] or or [phone] * Roger Cohen, brother: [phone] . Prognosis Patient is terminal, likely brain , unable to perform brain testing due to hemodynamic instability. Patient will not survive this hospitalization. . Code Status: No Code Plan * No written advanced directives. Patient is not capacitated and will not regain capacity. . According to [place] statutes, health care proxy decision making falls to majority of adult children, she has 1 son and 1 daughter. * NO CODE * Family has elected to transition to comfort measures with compassionate withdrawal of life support. * Exhibits B & C on chart. * Orders written for comfort. * Intensive Care Specialist has visited. * Family declined hospice services. * Palliative care number provided. * Palliative care will assist with symptom management and clarification of medical treatment goals as needed. . Thank you for the opportunity to participate in the care of Ms. Anthony. Attestation To help prompt me to consider important information that might be impacting today's encounter and assessment, information from prior notes written by myself or my colleagues may have been "brought forward" into today's note. My signature on this note, however, is an attestation that I personally performed the exam, history, and/or decision-making noted today, and, unless otherwise indicated, the interactions with patient, family, and staff as well as the review of records all occurred today. I also attest that the listed assessment and stated plan reflect my best clinical judgment today based on the combination of historical information, prior notes, and today's exam/ interactions. When time spent is documented, it refers only to time spent today by the signer, or if indicated, combined time spent today by collaborating physician/nurse practitioner. Mariam Ruvalcaba Jan 17, 2018 11:18
[2018-01-17] MEDS ORDERED: HYDROmorphone HCL PF 2 MG/ML VIAL IV PUSH ONE ×2 (12:00→12:30)
[2018-01-17] MEDS ORDERED: LORazepam 2 MG/ML VIAL IV PUSH ONE ×2 (12:00→12:30)
[2018-01-17] MEDS ORDERED: HYDROmorphone HCL PF 2 MG/ML VIAL IV PUSH PRN ×2 (12:30)
[2018-01-17] MEDS ORDERED: LORazepam 2 MG/ML VIAL IV PUSH PRN ×3 (12:30)
[2018-01-17] MEDS ORDERED: HYOSCYAMINE 0.5 MG/ML AMP IV PUSH PRN (12:30)
--- NOTE | 2018-01-17 14:26 | DEATH SUM ---
Summary Demographics Date Pronounced : Jan 17, 2018 Time Of : 1242 Pronounced By: Dr. Lafleur Preliminary Cause of : Multi Organ Failure Nikko Lafleur MD Jan 17, 2018 14:26
--- NOTE | 2018-01-17 16:05 | HHI.DS ---
Summary Note Date of : Jan 17, 2018 Time Of : 1242 Admission Date Jan 16, 2018 at 09:54 Admitting Diagnosis Diagnosis at Time of : (1) Aneurysmal subarachnoid hemorrhage ICD Code: I60.8 - Other nontraumatic subarachnoid hemorrhage Diagnosis: Principal (2) Interhemispheric and bifrontal SDH Diagnosis: Principal (3) IVH (intraventricular hemorrhage) ICD Code: I61.5 - Nontraumatic intracerebral hemorrhage, intraventricular Diagnosis: Principal (4) Acute hypoxemic respiratory failure ICD Code: J96.01 - Acute respiratory failure with hypoxia Diagnosis: Principal (5) Acute encephalopathy ICD Code: G93.40 - Encephalopathy, unspecified Diagnosis: Principal (6) Cardiac arrest ICD Code: I46.9 - Cardiac arrest, cause unspecified Diagnosis: Principal (7) PEA (Pulseless electrical activity) ICD Code: I46.9 - Cardiac arrest, cause unspecified Diagnosis: Principal (8) V-tach ICD Code: I47.2 - Ventricular tachycardia Diagnosis: Principal (9) EDWARD (acute kidney injury) ICD Code: N17.9 - Acute kidney failure, unspecified Diagnosis: Principal (10) Pneumothorax ICD Code: J93.9 - Pneumothorax, unspecified Diagnosis: Principal (11) Aspiration pneumonia ICD Code: J69.0 - Pneumonitis due to inhalation of food and vomit Diagnosis: Principal (12) UTI (urinary tract infection) ICD Code: N39.0 - Urinary tract infection, site not specified Diagnosis: Principal (13) Severe sepsis ICD Code: A41.9 - Sepsis, unspecified organism; R65.20 - Severe sepsis without septic shock Diagnosis: Principal (14) Shock ICD Code: R57.9 - Shock, unspecified Diagnosis: Principal Procedures 01/16/18. Left IJ central line placement, right femoral arterial line placement , chest tube placement 2 Brief History Patient is a 57-year-old female with past medical history significant for alcohol abuse who was found unresponsive in her bathroom by her brother. Patient lives with her brother and family, and apparently they heard a fall and checked on her and she was lying on the ground, confused lethargic. Patient initially opened her eyes but then again level of consciousness started to deteriorate. Emergently taken to [facility] by EMS. Intubated for airway protection. CT of the head at [facility] showed subdural hemorrhage along tentorium and falx and subarachnoid hemorrhage. Patient has reported a history of headache yesterday night. Patient was emergently transferred to [facility] for further workup. Patient was immediately evaluated after arrival to the [facility] ICU. She withdraws to pain otherwise no spontaneous eye opening or movements. Remain hypoxemic with bilateral infiltrates on chest x-ray. Patient was emergently sent for a CT of the head and CT angiogram of brain and neck. CT brain here confirmed interhemispheric and bifrontal subdural hemorrhage, intraventricular hemorrhage involving third fourth and lateral ventricles, and subarachnoid hemorrhage. 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 Discussed with neurosurgery Dr. Mckinley, and I contacted interventional radiologist Dr. Erwin Lisa. He is unable to coil this aneurysm and he recommends transfer to [facility]. At this time we will target a systolic blood pressure less than 120 as aneurysm is not secure. Stat order for starting Nimotop given. Arrangements are being made to transfer her to [facility]. Keep Na 145-150. EVD planned if clinical deterioration or delay in transfer. CBC/BMP: 01/17/18 0700 01/17/18 0700 Significant Findings Laboratory Tests Test 01/16/18 10:00 01/16/18 10:25 01/16/18 12:15 01/16/18 13:20 Blood Gas HCO3 16 mmol/L (22-26) 15 mmol/L (22-26) Blood Gas Base Excess -9.4 mmol/L (-2-2) -9.5 mmol/L (-2-2) Blood Gas Oxygen Saturation 85 % (90-100) Arterial Blood pH 7.26 (7.380-7.420) 7.36 (7.380-7.420) Arterial Blood Oxygen Content 23.8 Vol % (12.0-20.0) 29.7 Vol % (12.0-20.0) Blood Gas Hemoglobin 20.0 G/DL (12.0-16.0) 21.6 G/DL (12.0-16.0) Arterial Blood Partial Pressure CO2 28 mmHg (38-42) Arterial Blood Partial Pressure O2 179 mmHg (61-120) Urine Specific [place] GREATER THAN 1.050 Urine Protein 30 mg/dL (NEG-TRACE) Urine Occult Blood MOD (NEG) Urine Nitrite POS (NEG) Urine Leukocyte Esterase SMALL (NEG) Urine RBC 20 /hpf (0-3) Urine WBC 49 /hpf (0-5) Urine Bacteria FEW /hpf (NONE) Urine Mucus FEW /lpf (OCC) Urine Cannabinoids Screen POS (NEG) Test 01/16/18 13:30 01/16/18 15:03 01/16/18 16:10 01/16/18 17:55 White Blood Count 19.2 TH/MM3 (4.0-11.0) Red Blood Count 5.90 MIL/MM3 (4.00-5.30) Hemoglobin 21.5 GM/DL (11.6-15.3) Hematocrit 61.4 % (35.0-46.0) Mean Corpuscular Volume 104.1 FL (80.0-100.0) Mean Corpuscular Hemoglobin 36.4 PG (27.0-34.0) Neutrophils (%) (Auto) 79.9 % (16.0-70.0) Neutrophils # (Auto) 15.4 TH/MM3 (1.8-7.7) Monocytes # (Auto) 1.3 TH/MM3 (0-0.9) Creatinine 0.36 MG/DL (0.50-1.00) Random Glucose 118 MG/DL (74-106) Total Protein 3.7 GM/DL (6.4-8.2) Albumin 1.7 GM/DL (3.4-5.0) Calcium Level 5.7 MG/DL (8.5-10.1) Phosphorus Level 1.9 MG/DL (2.5-4.9) Magnesium Level 1.1 MG/DL (1.5-2.5) Aspartate Amino Transf (AST/SGOT) 75 U/L (15-37) Sodium Level 150 MEQ/L (136-145) Potassium Level 3.3 MEQ/L (3.5-5.1) Chloride Level 126 MEQ/L (98-107) Carbon Dioxide Level 15.2 MEQ/L (21.0-32.0) Protein Corrected Calcium 7.3 MG/DL (8.5-10.1) Blood Gas HCO3 18 mmol/L (22-26) Blood Gas Base Excess -8.3 mmol/L (-2-2) -3.6 mmol/L (-2-2) Blood Gas Oxygen Saturation 86 % (90-100) Arterial Blood pH 7.24 (7.380-7.420) 7.32 (7.380-7.420) Arterial Blood Partial Pressure CO2 43 mmHg (38-42) 43 mmHg (38-42) Arterial Blood Oxygen Content 22.7 Vol % (12.0-20.0) 24.6 Vol % (12.0-20.0) Blood Gas Hemoglobin 18.8 G/DL (12.0-16.0) 17.7 G/DL (12.0-16.0) Arterial Blood Partial Pressure O2 199 mmHg (61-120) Test 01/16/18 20:45 01/16/18 21:19 01/17/18 07:00 White Blood Count 17.1 TH/MM3 (4.0-11.0) Red Blood Count 5.75 MIL/MM3 (4.00-5.30) Hemoglobin 19.9 GM/DL (11.6-15.3) 17.6 GM/DL (11.6-15.3) Hematocrit 60.2 % (35.0-46.0) 54.1 % (35.0-46.0) Mean Corpuscular Volume 104.7 FL (80.0-100.0) 107.6 FL (80.0-100.0) Mean Corpuscular Hemoglobin 34.5 PG (27.0-34.0) 35.0 PG (27.0-34.0) Platelet Count 122 TH/MM3 (150-450) 81 TH/MM3 (150-450) Prothrombin Time 15.5 SEC (9.8-11.6) Activated Partial Thromboplast Time 39.3 SEC (24.3-30.1) Creatinine 1.13 MG/DL (0.50-1.00) 2.18 MG/DL (0.50-1.00) Random Glucose 196 MG/DL (74-106) 38 MG/DL (74-106) Total Protein 4.2 GM/DL (6.4-8.2) 2.8 GM/DL (6.4-8.2) Albumin 1.9 GM/DL (3.4-5.0) 1.1 GM/DL (3.4-5.0) Calcium Level 11.4 MG/DL (8.5-10.1) 8.2 MG/DL (8.5-10.1) Phosphorus Level 6.2 MG/DL (2.5-4.9) Aspartate Amino Transf (AST/SGOT) 255 U/L (15-37) 3390 U/L (15-37) Alanine Aminotransferase (ALT/SGPT) 88 U/L (10-53) 1587 U/L (10-53) Total Bilirubin 1.5 MG/DL (0.2-1.0) 1.3 MG/DL (0.2-1.0) Sodium Level 149 MEQ/L (136-145) 157 MEQ/L (136-145) Chloride Level 122 MEQ/L (98-107) 127 MEQ/L (98-107) Carbon Dioxide Level 14.1 MEQ/L (21.0-32.0) 12.9 MEQ/L (21.0-32.0) Estimat Glomerular Filtration Rate 50 ML/MIN (>89) 23 ML/MIN (>89) Lactic Acid Level 7.7 mmol/L (0.4-2.0) Red Cell Distribution Width 17.5 % (11.6-17.2) Band Neutrophils % 30 % (0-6) Neutrophils # (Manual) 8.4 TH/MM3 (1.8-7.7) Metamyelocytes 8 % (0-1) Nucleated Red Blood Cells 3 /100 WBC (0-0) Toxic Granulation 1+ (NORMAL) Toxic Vacuolation PRESENT (NONE SEEN) Platelet Estimate LOW (NORMAL) Blood Urea Nitrogen 20 MG/DL (7-18) Potassium Level 5.2 MEQ/L (3.5-5.1) Anion Gap 17 MEQ/L (5-15) Imaging Chest X-Ray 01/17/18 -bilateral pulmonary edema Head CT 01/16/18 1010 CONCLUSION: Subarachnoid, intraventricular and subdural hemorrhage Head CTA 01/16/18 CONCLUSION: 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 Hospital Course Patient is a 57-year-old female with past medical history significant for alcohol abuse who was found unresponsive in her bathroom by her brother. Patient lives with her brother and family, and apparently they heard a fall and checked on her and she was lying on the ground, confused lethargic. Patient initially opened her eyes but then again level of consciousness started to deteriorate. Emergently taken to [facility] by EMS. Intubated for airway protection. CT of the head at [facility] showed subdural hemorrhage along tentorium and falx and subarachnoid hemorrhage. Patient has reported a history of headache yesterday night. Patient was emergently transferred to [facility] for further workup. Patient was immediately evaluated after arrival to the [facility] ICU. She withdraws to pain otherwise no spontaneous eye opening or movements. Remain hypoxemic with bilateral infiltrates on chest x-ray. Patient was emergently sent for a CT of the head and CT angiogram of brain and neck. CT brain here confirmed interhemispheric and bifrontal subdural hemorrhage, intraventricular hemorrhage involving third fourth and lateral ventricles, and subarachnoid hemorrhage. 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 Discussed with neurosurgery Dr. Mckinley, and I contacted interventional radiologist Dr. Erwin Lisa. He is unable to coil this aneurysm and he recommends transfer to [facility]. At this time we will target a systolic blood pressure less than 120 as aneurysm is not secure. Stat order for starting Nimotop given. Arrangements are being made to transfer her to [facility]. Keep Na 145-150. EVD planned if clinical deterioration or delay in transfer. SUBJ 01/17/18: Patient remains extremely critical. Remains in profound shock despite being on epinephrine 15 mcg/min, Levophed 55 mcg/min and Jose-Synephrine 500 mcg/min. her neuro exam is concerning for brain . Pupils are fixed and dilated, no corneal reflexes no withdrawal to pain however the patient is too unstable for a nuclear medicine flow study. EF on bedside echo 25-30%. Transferred to [facility] was canceled yesterday due to cardiac arrest and following ACLS. Extensively discussed with brother and patient's daughter. They finally decided to withdraw life support and make patient comfortable. Palliative care was consulted for assistance. After administration of comfort medications life support was withdrawn, patient at 1242 on 01/17/18 Nikko Lafleur MD Jan 17, 2018 16:05
== END 2018-01-17 12:45 | disposition expired | DRG 64 ==
LOC: N03A 09:54
PROVIDERS: ADMIT Surgery Surgical Critical Care; ATTEND Surgery Surgical Critical Care
PROC: 5A1935Z Respiratory Ventilation, Less than 24 Consecutive Hours (ICD-10-PCS; principal; 2018-01-16)
PROC: 04HY32Z Insertion of Monitoring Device into Lower Artery, Percutaneous Approach (ICD-10-PCS; 2018-01-16)
PROC: 05HN33Z Insertion of Infusion Device into Left Internal Jugular Vein, Percutaneous Approach (ICD-10-PCS; 2018-01-16)
PROC: B544ZZA Ultrasonography of Left Jugular Veins, Guidance (ICD-10-PCS; 2018-01-16)
PROC: 0W9B30Z Drainage of Left Pleural Cavity with Drainage Device, Percutaneous Approach (ICD-10-PCS; 2018-01-16)
PROC: 0W9B30Z Drainage of Left Pleural Cavity with Drainage Device, Percutaneous Approach (ICD-10-PCS; 2018-01-16)
DX: I60.8 Other nontraumatic subarachnoid hemorrhage (principal); J96.01 Acute respiratory failure with hypoxia; R65.21 Severe sepsis with septic shock; I46.9 Cardiac arrest, cause unspecified; J69.0 Pneumonitis due to inhalation of food and vomit; G93.40 Encephalopathy, unspecified; A41.9 Sepsis, unspecified organism; I47.2 Ventricular tachycardia; N17.9 Acute kidney failure, unspecified; I42.9 Cardiomyopathy, unspecified; J93.9 Pneumothorax, unspecified; N39.0 Urinary tract infection, site not specified; D75.1 Secondary polycythemia; F10.20 Alcohol dependence, uncomplicated; I61.5 Nontraumatic intracerebral hemorrhage, intraventricular; F17.210 Nicotine dependence, cigarettes, uncomplicated; W18.30XA Fall on same level, unspecified, initial encounter; Z66 Do not resuscitate
CPT/HCPCS: 32551; 36556; 36600; 70450; 70496; 70498; 71045; 80053; 80307; 81001; 82805; 83605; 83735; 84100; 85007; 85025; 85027; 85610; 85730; 87070; 87077; 87086; 87186; 87205; 87641; 92950; 94002; 94003; 94664; J0171; J1170; J1265; J2060; J2250; J2370; J2543; J3010; J3411; J7030; J7050; Q9967